=== PATIENT | male | born 1950 | race Caucasian/White ===

== ENCOUNTER 2019-08-04 10:01 | Outpatient (CLI) | payer MEDICARE, OTHER, SELFPAY | END 2019-08-04 10:02 | disposition home or self-care (01) | LOC: ONCMED 10:01 | PROVIDERS: Family Provider Nurse Practitioner; Visit Provider Internal Medicine Medical Oncology | DX: Z45.2 Encounter for adjustment and management of vascular access device (principal) | CPT/HCPCS: 96523 ==

== ENCOUNTER → 2019-08-11 11:27 | Outpatient (BNVA) | payer MEDICARE, OTHER, SELFPAY | PROVIDERS: Family Provider Nurse Practitioner; Visit Provider Nurse Practitioner Family | DX: R05 Cough (principal); J98.8 Other specified respiratory disorders; I51.7 Cardiomegaly; I70.90 Unspecified atherosclerosis | CPT/HCPCS: 71046; 85025 ==

== ENCOUNTER 2019-09-19 08:33 | Outpatient (CLI) | payer MEDICARE, OTHER, SELFPAY | END 2019-09-19 08:34 | disposition home or self-care (01) | LOC: ONCMED 08:36 | PROVIDERS: Family Provider Nurse Practitioner; Visit Provider Internal Medicine Medical Oncology | DX: Z45.2 Encounter for adjustment and management of vascular access device (principal) | CPT/HCPCS: 96523 ==

== ENCOUNTER → 2022-02-26 23:23 | Outpatient (BNVA) | payer MEDICARE, OTHER, SELFPAY | PROVIDERS: Family Provider Nurse Practitioner; Visit Provider Nurse Practitioner | DX: L98.9 Disorder of the skin and subcutaneous tissue, unspecified (principal) | CPT/HCPCS: 88304 ==

== ENCOUNTER → 2022-03-16 12:49 | Outpatient (BNVA) | payer MEDICARE, OTHER, SELFPAY | PROVIDERS: Family Provider Nurse Practitioner; PCP Nurse Practitioner; Visit Provider Otolaryngology | DX: D04.22 Carcinoma in situ of skin of left ear and external auricular canal (principal) | CPT/HCPCS: 99203 ==

== ENCOUNTER 2022-04-02 07:34 | Day surgery (SDC) | payer MEDICARE, OTHER, SELFPAY ==
[2022-04-01 15:43] VITALS: BMI 31.6
[2022-04-02] VITALS (8 sets, daily range): BP systolic 139–159; BP diastolic 65–86; PULSE 63–73; RESP 15–19; TEMP 36.2–37.1; O2SAT 95–100
--- NOTE | 2022-04-02 08:01 | W.PM.OPSUD ---
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
--- NOTE | 2022-04-02 08:08 | ANES.PREANE2 ---
Pre-Anesthetic Assessment Height/Weight: Height 1.83 m Weight 105.687 kg Temp Pulse Resp BP Pulse Ox O2 Del Method 97.7 F 63 18 155/82 96 04/02/22 07:58 04/02/22 07:58 04/02/22 07:58 04/02/22 07:58 04/02/22 07:58 04/02/22 07:58 Preop Diagnosis: Carcinoma in situ left posterior ear Operation Date: 04/02/22 09:05 Proposed Procedures p excision of the posterior aspect of left ear - under local anesthesia only 76299,D04.22(Left) - Thuan Loza MD Familial anesthetic complications: None Was Beta Rachel taken within 24 hours: N/A Was Clonidine taken within 24 hours: N/A Last intake: Intake Last Liquid Date 04/01/22 Last Liquid Time 22:00 Last Solid Date 04/01/22 Last Solid Time 22:00 Social No alcohol and No tobacco Exam alert, oriented x 3, clear to auscultation bilaterally and regular rate & rhythm Airway Mallampati: Class II Dentition: false CV/HEM Hypertension Metabolic Hyperlipidemia Anesthetic Plan ASA status: 2 Anesthesia: General Risk of > 500 ml blood loss (7ml/kg in children): No Medications/Allergies Home Medications Medication Instructions Recorded Confirmed Last Taken Type gabapentin 300 mg capsule 300 mg PO BID 08/04/19 04/02/22 04/02/22 06:00 History losartan 50 mg tablet 50 mg PO DAILY 08/04/19 04/02/22 1 Day Ago History ~04/01/22 lovastatin 40 mg tablet 40 mg PO DAILY 08/04/19 04/02/22 1 Day Ago History ~04/01/22 mirtazapine 15 mg tablet 15 mg PO DAILY 08/04/19 04/02/22 1 Day Ago History ~04/01/22 amlodipine 5 mg tablet 5 mg PO DAILY 02/26/22 04/02/22 04/02/22 06:00 History prenat.vits,peri,mti-ofwk-rwhsi 1 tab PO DAILY 02/26/22 04/02/22 04/02/22 06:00 History prochlorperazine maleate 10 mg 10 mg PO .prn PRN Nausea 02/26/22 04/01/22 Unknown History tablet Allergies Allergy/AdvReac Type Severity Reaction Status Date / Time No Known Allergies Allergy Verified 04/02/22 07:52 [facility] Anesthesia Medical History Anxiety Cardiomegaly Dyslipidemia Hypertension Lymphoma Surgical History History of stem cell transplant Port-A-Cath in place Family History Other CAD (coronary artery disease) Cancer Hypertension Denies family history of Diabetes Stroke Social History Smoking and tobacco status: never smoked Second hand smoke exposure: No Smoking risk assessment/counseling performed?: No Alcohol intake: never Desire information about alcohol rehabilitation?: No Counseling given: No Desire information about substance/drug rehabilitation?: No Counseling given: No Adopted: No Caregiver/support person: No Lives independently: Yes Household members: none Housing: House Marital status: Number of children: 2 service: No Current occupational status: employed Current occupation: [employer] Pets and animals: Yes History of recent travel: No Current gender identity: Male Data Anesthesia Cardiac Studies: No Data to Display
[2022-04-02] MEDS: sodium chloride 0.9% 1,000 ML 30 ML IV (08:15)
[2022-04-02] MEDS: ceFAZolin 2,000 MG in sodium chloride 0.9% (plus) 50 ML 100 MG IV (08:53)
[2022-04-02] MEDS: neomycin-poly-bacitracin oint 28 gm 1 APPLIC TOPICAL (09:45)
--- NOTE | 2022-04-02 09:48 | W.PM.OPSUD ---
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
--- NOTE | 2022-04-02 09:49 | P.OP_ITS ---
Operative Report Date of procedure: April 02, 2022 Pre-op diagnosis: Preop Diagnosis Carcinoma in situ left posterior ear Post-op diagnosis: Squamous cell carcinoma posterior left ear Post-op findings: Previous shave biopsy that revealed carcinoma in situ excised completely and showed microscopically squamous cell carcinoma. Margins clear. Procedure done: Excision of left posterior auricular skin lesion with closure Implants: No implants Specimens removed/disposition: Same Pathology: Left posterior auricular fusiform skin excision specimen marked superiorly with suture. Frozen section clear margins and squamous cell carcinoma present. Surgeon: Thuan oLza MD Anesthesia: General and Local Estimated blood loss: 10 mL Complications: No complications encountered Findings: Left posterior auricular lesion previously biopsied showed carcinoma in situ. Margins were positive. Therefore patient was seen in the office and definite abnormal tissue appearance was still present. Therefore the patient is being brought to the operating room to undergo excision to incorporate the lesion and obtain adequate margins and to rule out squamous cell carcinoma. The procedure its risks and complications have been explained in detail to the patient and his in the office. Informed consent was granted and witnessed. They understand the risks to include bleeding infection numbness scarring swelling bruising cosmetic change recurrence need for additional treatment and anesthetic risks. With these things understood the procedure proceeded. 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 Pathology returned as carcinoma in situ. Due to its location on the posterior aspect of the ear the concrete mixing plant laborer felt that it would be best handled by ENT for complete resection and closure. Patient is being brought to the operating room for this procedure. Initially it was felt that it would be possible to do this under strict local. However based on the age of the patient and the length of time it would take to get frozen section and margins I did not feel that the patient would be able to hold in that position for that length of time. Therefore it was elected to switch over to General with LMA and local. Procedure: Description of procedure: Patient was placed on the operating table in the supine position. Adequate general LMA anesthesia was obtained. Patient received Ancef IV for prophylaxis. The patient was repositioned into a semirecumbent position and tilted slightly to the right to expose the left posterior ear. In that position the area was prepped by first cleansing with alcohol. Sign the site was noted. 5.1 mL of 2% Xylocaine with 1-100,000 epinephrine was used to infiltrate into a field block. The patient was then prepped and draped in usual fashion. ChloraPrep used. Timeout was accomplished identifying the patient date of plan procedure allergies fire risk and medications given. With all in agreement the procedure continued. A marking pen was used to outline a fusiform excision pattern. This measured over 2 cm superior to inferior and approximately 1.3 cm anterior to posterior. The lesion in question measured about 4 mm. The incision was created with a 15 blade carrying it down to the perichondrium. In this layer the lesion was excised. The superior aspect was marked with a suture. This was forwarded to pathology for frozen section diagnosis and margins. The bleeding was controlled with bipolar cautery. Pressure was applied for several minutes. With the likelihood that I got good margins around the lesion I closed the surgical defect with a running 4-0 Vicryl suture. Pressure was then applied for approximately 15 minutes while further frozen section evaluation was accomplished. The final result on the frozen section was that there was an area of squamous cell carcinoma. Margins were clear throughout. With that accomplished the area was cleansed. Neosporin ointment was applied over the incision. A large Band-Aid was used to cover over that. Drapes were removed and the patient was returned to anesthesia for wake-up and transport to recovery. He tolerated the procedure well had an estimated blood loss of 10 mL and arrived in recovery in stable condition.
--- NOTE | 2022-04-02 10:00 | SUR.PHASEI ---
0954 PT TO PACU 4 PT AWAKES, ORAL AIRWAY OUT , PT WITH GOOD RESP NOTED IV PATENT TO LT CHEST PORT AT KVO RATE PER GRAVITY, 500ML NS UP. ID BRACELET TO RT WRIST, PT ID'D WITH 2 IDENTIFIERS, MONITOR SR WITH NO ECTOPY NOTED. LT EAR WITH BANDAID DRESSING D/I PT AWAKES TO VOICE EASILY AND VERBALLY DENIES PAIN AND NAUSEA, PT QUICKLY BACK TO SLEEP WITH NO DISTRESS, GOOD RESP EFFORT NOTED.
--- NOTE | 2022-04-02 13:35 | ANE.PACU2 ---
Inpatient post-anesthesia follow up: Airway intact: Yes Vital signs: Temperature 97.8 F Pulse Rate 67 Respiratory Rate 18 Blood Pressure 159/74 Pulse Oximetry 95 Oxygen Delivery Me thod Room Air Oxygen Flow Rate 8 Fraction of Inspir ed Oxygen Hydration adequate: Yes Nausea and vomiting: No Pain level: 1 Mental status: Baseline
== END 2022-04-02 11:09 | disposition home or self-care (01) ==
PROVIDERS: PCP Nurse Practitioner; Visit Provider Otolaryngology
PROC: (CPT 11643; principal; 2022-04-02 08:55)
DX: C44.229 Squamous cell carcinoma of skin of left ear and external auricular canal (principal); I10 Essential (primary) hypertension; E78.5 Hyperlipidemia, unspecified; F41.9 Anxiety disorder, unspecified
CPT/HCPCS: 11643; 12051; 88304; 88331; J0690; J2704; J3010; J7030

== ENCOUNTER → 2022-04-10 08:35 | Outpatient (BNVA) | payer MEDICARE, OTHER, SELFPAY | PROVIDERS: PCP Nurse Practitioner; Visit Provider Otolaryngology | DX: C44.229 Squamous cell carcinoma of skin of left ear and external auricular canal (principal) | CPT/HCPCS: 99024 ==

== ENCOUNTER → 2022-04-13 08:29 | Outpatient (BNVA) | payer MEDICARE, OTHER, SELFPAY | PROVIDERS: PCP Nurse Practitioner; Visit Provider Otolaryngology | DX: Z48.817 Encounter for surgical aftercare following surgery on the skin and subcutaneous tissue (principal); C44.229 Squamous cell carcinoma of skin of left ear and external auricular canal | CPT/HCPCS: 99024 ==

== ENCOUNTER → 2022-05-15 11:33 | Outpatient (BNVA) | payer MEDICARE, OTHER, SELFPAY | PROVIDERS: PCP Nurse Practitioner; Visit Provider Otolaryngology | DX: Z48.817 Encounter for surgical aftercare following surgery on the skin and subcutaneous tissue (principal) | CPT/HCPCS: 99024; 99212 ==

== ENCOUNTER → 2022-05-29 14:05 | Outpatient (BNVA) | payer MEDICARE, OTHER, SELFPAY | PROVIDERS: PCP Nurse Practitioner; Visit Provider Nurse Practitioner Family | DX: R05.9 Cough, unspecified (principal); J06.9 Acute upper respiratory infection, unspecified | CPT/HCPCS: 87400; 87426 ==

== ENCOUNTER 2023-10-08 08:22 | Oncology outpatient (recurring) (ONCR) | payer MEDICARE, OTHER, SELFPAY | END 2023-10-29 23:59 | disposition home or self-care (01) | PROVIDERS: PCP Nurse Practitioner; Visit Provider Internal Medicine Medical Oncology | DX: Z45.2 Encounter for adjustment and management of vascular access device (principal); Z53.9 Procedure and treatment not carried out, unspecified reason | CPT/HCPCS: 96523 ==

== ENCOUNTER 2024-05-03 13:09 | Oncology outpatient (recurring) (ONCR) | payer MEDICARE, OTHER, SELFPAY | END 2024-05-30 23:59 | disposition home or self-care (01) | PROVIDERS: PCP Nurse Practitioner; Visit Provider Internal Medicine Medical Oncology | DX: Z45.2 Encounter for adjustment and management of vascular access device (principal) | CPT/HCPCS: 96523 ==

== ENCOUNTER → 2024-07-25 15:52 | Outpatient (BNVA) | payer MEDICARE, OTHER, SELFPAY | PROVIDERS: PCP Nurse Practitioner; Visit Provider Nurse Practitioner | DX: R05.9 Cough, unspecified (principal); R50.9 Fever, unspecified | CPT/HCPCS: 87400; 87426 ==

== ENCOUNTER → 2024-08-31 14:56 | Outpatient (BNVA) | payer MEDICARE, OTHER, SELFPAY | PROVIDERS: PCP Nurse Practitioner; Referring Provider Nurse Practitioner; Visit Provider Nurse Practitioner Family | DX: L81.4 Other melanin hyperpigmentation (principal); L82.1 Other seborrheic keratosis; L57.8 Other skin changes due to chronic exposure to nonionizing radiation; X32.XXXA Exposure to sunlight, initial encounter; L73.8 Other specified follicular disorders; Z08 Encounter for follow-up examination after completed treatment for malignant neoplasm; Z85.828 Personal history of other malignant neoplasm of skin; D48.5 Neoplasm of uncertain behavior of skin; L57.0 Actinic keratosis | CPT/HCPCS: 11102; 17000; 99203 ==

== ENCOUNTER → 2024-10-09 09:09 | Outpatient (BNVA) | payer MEDICARE, OTHER, SELFPAY | PROVIDERS: PCP Nurse Practitioner; Visit Provider Dermatology | DX: L82.1 Other seborrheic keratosis (principal); L73.8 Other specified follicular disorders; C44.311 Basal cell carcinoma of skin of nose | CPT/HCPCS: 17311; 99213 ==

== ENCOUNTER → 2024-10-13 08:31 | Outpatient (BNVA) | payer MEDICARE, OTHER, SELFPAY | PROVIDERS: PCP Nurse Practitioner; Visit Provider Dermatology | DX: C44.311 Basal cell carcinoma of skin of nose (principal) | CPT/HCPCS: 15260 ==

== ENCOUNTER 2024-10-19 10:56 | Oncology outpatient (recurring) (ONCR) | payer MEDICARE, OTHER, SELFPAY | END 2024-10-28 23:59 | disposition home or self-care (01) | LOC: ONCMED 10:57 | PROVIDERS: PCP Nurse Practitioner; Visit Provider Internal Medicine Medical Oncology | DX: Z45.2 Encounter for adjustment and management of vascular access device (principal); Z95.828 Presence of other vascular implants and grafts | CPT/HCPCS: 96523 ==

== ENCOUNTER → 2024-10-24 12:25 | Outpatient (BNVA) | payer MEDICARE, OTHER, SELFPAY | PROVIDERS: PCP Nurse Practitioner; Visit Provider Dermatology | DX: C44.311 Basal cell carcinoma of skin of nose (principal) | CPT/HCPCS: 99213 ==

== ENCOUNTER → 2024-11-07 13:09 | Outpatient (BNVA) | payer MEDICARE, OTHER, SELFPAY | PROVIDERS: PCP Nurse Practitioner; Visit Provider Dermatology | DX: C44.311 Basal cell carcinoma of skin of nose (principal) | CPT/HCPCS: 99213 ==

== ENCOUNTER 2024-12-09 15:56 | Emergency (ER) | payer MEDICARE, OTHER, SELFPAY ==
--- OUTSIDE RECORDS SUMMARY | 2024-11-23 04:30 | XMS_ITS ---
Author Organization [facility] Address [address] [place] [address] Care Team Providers Care Medical Laboratory Manager Name Role Phone Mick Del Toro APRN Primary Care Provider Unav Edin Donovan Unavailable [phone] Encounters Encounter Location Date Provider Diagnosis [facility] [address] [place] [address], [place] [address] 11/23/2024 Edin Myers Plan Of Treatment Next Appt Details Provider Name:Rossana jim, 01/05/2025 10:45:00 AM, [address] [place] [address], [place], [address], Progress Notes * Marcus GAYTANDOB: [birth year] (74 yo M)Acc No.[id number]:11/23/2024 Patient: Marcus Bennett Provider: Robb Myers MD :1950 A ge:74 Y S ex:Male Date:11/23/2024 Address:[address] [place], [place] [id number] Pcp:Mick Del Toro APRN Check In:09:16 AM CSTCheck O ut: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
--- OUTSIDE RECORDS SUMMARY | 2024-12-08 07:00 | XMS_ITS ---
Author Organization [facility] Address [address] [place] [address] Care Team Providers Care Networker Name Role Phone Mick Del Toro APRN Primary Care Provider Edin Hodge [phone] REASON FOR VISIT RIGHT RADIAL APPROACH LHC +/- STENT SCHEDULED FOR 12/08/24 AT 12:00PM CHECK IN AT 9:00AM Medications Medication SIG (Take, Route, Frequency, Duration) Notes Start Date End Date Status Plavix 75 MG Tablet 1 tablet Orally Once a day; Duration: 90 days 11/23/2024 Active Aspirin 81 81 MG Tablet Chewable 1 tablet Orally Once a day; Duration: 30 day(s) 11/23/2024 12/23/2024 Active Telmisartan 40 MG Tablet 1 tablet Orally Once a day Active Spironolactone 25 MG Tablet 1 tablet Orally Active Nitroglycerin 0.4 MG Tablet Sublingual as directed Sublingual 1 SL Q 5 MIN, XS 3 PRN CP, GO TO ER IF TAKES 3RD PILL. NO IMPOTENCY MED WITHIN 48 HRS.; Duration: 30 days 09/13/2024 01/11/2025 Active amLODIPine Besylate 5 MG Tablet 1 tablet Orally Once a day Active Mirtazapine 7.5 MG Tablet 2 tablets at b edtime Orally Once a day Active Lovastatin 40 MG Tablet 1 tablet with th e evening meal Orally Once a day Active Gabapentin 300 MG Capsule 1 capsule Orally BID Active DULoxetine HCl 30 MG Capsule Delayed Release Particles 1 capsule Orally Once a day Active Encounters Encounter Location Date Provider Diagnosis [facility] [address] [place] [address] 12/08/2024 Edin Myers Plan Of Treatment Next Appt Details Provider Name:Rossana jim, 01/05/2025 10:45:00 AM, [address] [facility], [place], [address], Progress Notes * Marcus GAYTANDOB: [birth year] (74 yo M)Acc No.[id number]:12/08/2024 Patient: Marcus Bennett Provider: oRbb Myers MD :1950 A ge:74 Y S ex:Male Date:12/08/2024 Address:[address] [place], [place] [id number] Pcp:Mick Del Toro APRN 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:35 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 NO IMPOTENCY MED WITHIN 48 HRS. , stop date 01/11/2025Spironolactone 25 MG Tablet 1 tablet Orally Telmisartan 40 MG Tablet 1 tablet Orally Once a day Aspirin 81 81 MG Tablet Chewable 1 tablet Orally Once a day , stop date 12/23/2024Plavix 75 MG Tablet 1 tablet Orally Once a day Taking amLODIPine Besylate 5 MG Tablet 1 tablet Orally Once a day Taking DULoxetine HCl 30 MG Capsule Delayed Release Particles 1 capsule Orally Once a day Taking Gabapentin 300 MG Capsule 1 capsule Orally BID Taking Lovastatin 40 MG Tablet 1 tablet with the evening meal Orally Once a day Taking Mirtazapine 7.5 MG Tablet 2 tablets at bedtime Orally Once a day Taking Nitroglycerin 0.4 MG Tablet Sublingual as directed Sublingual 1 SL Q 5 MIN, XS 3 PRN CP, GO TO ER IF TAKES 3RD PILL. NO IMPOTENCY MED WITHIN 48 HRS. , stop date 01/11/2025Taking Spironolactone 25 MG Tablet 1 tablet Orally Taking Telmisartan 40 MG Tablet 1 tablet Orally Once a day Taking Aspirin 81 81 MG Tablet Chewable 1 tablet Orally Once a day , stop date 12/23/2024Taking Plavix 75 MG Tablet 1 tablet Orally Once a day Billing Information: * Procedure Codes: * Electronic signature of Ana Luisa Myers MD on 12/09/2024 at 04:07 PM CDT Sign off status: Pending * Provider: Robb Myers MD Date: 12/08/2024 Generated for Janie mcgee/Maxx/Clement on: 12/09/2024 04:07 PM CDT
[2024-12-09] VITALS (8 sets, daily range): BP systolic 125–141; BP diastolic 68–83; PULSE 62–71; RESP 16; TEMP 36.7; O2SAT 92–96; BMI 33.9
--- NOTE | 2024-12-09 15:59 | ECG_ITS ---
[facility] Test Date: 2024-12-09 Pat Name: Marcus Mejia Department: Room: Gender: Male Cardiology Associate: : 1950 Requested By: Scott Hassan Order Number: [id number] Samira MD: Gerson Paul M.D. Measurements Intervals [place] Rate: 70 P: 65 AK: 195 QRS: 56 QRSD: 155 T: 94 QT: 425 QTc: 459 Interpretive Statements SINUS RHYTHM WITH SINUS ARRHYTHMIA right bundle branch block pattern Compared to ECG 12/17/2018 14:15:59 Intraventricular conduction delay now present Right bundle-branch block no longer present T-wave abnormality no longer present Possible ischemia no longer present Electronically Signed On 12-12-2024 10:10:55 CDT by Gerson Paul M.D. [email or web address] [id number]
--- NOTE | 2024-12-09 15:59 | XRR_ITS ---
PROCEDURE INFORMATION: Exam: XR Chest Exam date and time: 12/09/2024 4:20 PM Age: 74 years old Clinical indication: Pain; Chest pressure; Prior surgery; Surgery date: 6+ months; Surgery type: Port-a-cath; PT was in procedure for stent placement yesterday but there was a complication with the PT blood pressure, and the procedure was stopped and was to be rescheduled. ; Additional info: Chest pain TECHNIQUE: Imaging protocol: Radiologic exam of the chest. Views: 1 view. COMPARISON: CR XR chest 2V* [id number] 08/11/2019 11:27 AM FINDINGS: Tubes, catheters and devices: Central venous access catheter or Port-A-Cath on the left, with tip of the catheter appearing in good position at the expected level of the superior vena cava near the right atrium. Lungs: See Pleural spaces finding. Pleural spaces: Biapical pleural thickening, unchanged with previous exam. No infiltrate/edema or consolidation. No pleural effusion. No pneumothorax. Heart/Mediastinum: Mild cardiomegaly. Vasculature: Mild arteriosclerosis thoracic aorta. Bones/joints: Unremarkable. Other findings: No significant change with prior exam. XR/XR chest 1V portable [id number] IMPRESSION: Stable appearance of the chest with prior exam. No acute findings. Port-A-Cath on the left, mild cardiomegaly, and bilateral apical pleural thickening are unchanged with prior exam.
--- NOTE | 2024-12-09 16:01 | W.ED.CHESTPA ---
Documented by User: Scott Rodriguez DO 12/11/24 08:40 HPI - Chest Pain General: Chief Complaint: Chest Pain Stated Complaint: chest pain Time Seen by Provider: 12/09/24 15:59 History of Present Illness: 74-year-old male presents to the emergency room with complaints of chest pain began while he was resting. Patient has known coronary disease he tells me he was at the [employer] yesterday in [place] there were areas of concern. Told they wanted to place stents for his blood pressure decrease stopped the procedure he was eventually discharged home today he had chest pain while at home at rest it was relieved by nitroglycerin he called EMS and was brought to the Associated symptoms: Deny abdominal pain, dyspnea or fever(s) Related Data Home Medications ?Medication ?Instructions ?Recorded ?Confirmed telmisartan 40 mg tablet 40 mg PO BEDTIME 03/03/23 12/09/24 clopidogrel 75 mg tablet 75 mg PO QAM 11/27/24 12/09/24 mirtazapine 7.5 mg tablet 7.5 mg PO BEDTIME 11/27/24 12/09/24 amlodipine 5 mg tablet 5 mg PO QAM 12/09/24 12/09/24 aspirin 81 mg tablet,delayed 81 mg PO BEDTIME 12/09/24 12/09/24 release famotidine 40 mg tablet (Pepcid) 40 mg PO QAM PRN stomach upset 12/09/24 12/09/24 lovastatin 40 mg tablet 40 mg PO BEDTIME 12/09/24 12/09/24 spironolactone 25 mg tablet 25 mg PO QAM 12/09/24 12/09/24 Previous Rx's ?Medication ?Instructions ?Recorded nebulizers #1 ea 07/25/24 gabapentin 300 mg capsule 300 mg PO BID #60 caps 11/10/24 duloxetine 30 mg capsule,delayed 30 mg PO BID #60 caps 11/27/24 release (Cymbalta) Allergies Allergy/AdvReac Type Severity Reaction Status Date / Time No Known Allergies Allergy Verified 11/27/24 14:26 Review of Systems Const: Denies: fever(s) or chills Card: Denies: chest pain Resp: Denies: dyspnea GI: Denies: abdominal pain : Denies: dysuria, urinary frequency or urinary urgency Musc: Denies: neck pain or back pain Skin/Breast: Denies: rash PFSH ED PFSH: Medical History Neuropathic pain Lymphoma Anxiety Dyslipidemia Hypertension Cardiomegaly Surgical History Port-A-Cath in place History of stem cell transplant Family History Other CAD (coronary artery disease) Cancer Hypertension Denies family history of Diabetes Stroke Social History Smoking and tobacco/nicotine status: former use of tobacco/nicotine Second hand smoke exposure: No Alcohol intake: never Substance/Drug Use: never Adopted: No Caregiver/support person: No Lives independently: Yes Household members: none Housing: House Marital status: Number of children: 2 service: No Current occupational status: employed Current occupation: [employer] Pets and animals: Yes Do you think of yourself as: Straight/Heterosexual Current gender identity: Male Physical Exam Const: COMMON NORMALS: no acute distress GENERAL APPEARANCE: cooperative and comfortable ORIENTATION/CONSCIOUSNESS: Yes awake, Yes oriented to person, Yes oriented to place and Yes oriented to time HENMT: COMMON NORMALS: normocephalic, atraumatic and hearing grossly normal bilaterally HEAD & SCALP: normocephalic and atraumatic Resp: COMMON NORMALS: normal respiratory effort, No retractions, No use of accessory muscles and clear to auscultation bilaterally AUSCULTATION: clear to auscultation bilaterally Cardio: COMMON NORMALS: regular rate, regular rhythm and No murmurs present (Cardio) RATE: regular rate RHYTHM: regular rhythm GI: COMMON NORMALS: Soft to palpation and No hepatosplenomegaly present AUSCULTATION: Yes normoactive bowel sounds PALPATION: Yes Soft to palpation, No Tenderness to palpation present (GI), No Guarding due to palpation present (GI) and Yes No hepatosplenomegaly present Extremity: COMMON NORMALS: normal to inspection, capillary refill normal, no clubbing, cyanosis or edema, no calf tenderness and no pedal edema Neuro: SENSORIUM/ORIENTATION: Yes oriented to person, Yes oriented to place and Yes oriented to time Skin: COMMON NORMALS: no rashes or lesions noted GENERAL SKIN EXAM: no rashes or lesions noted Course Vital Signs: Vital signs: Vital Signs Temperature 98.1 F 12/09/24 15:58 Pulse Rate 70 12/09/24 22:45 Respiratory Rate 16 12/09/24 22:45 Blood Pressure 133/74 12/09/24 22:45 Pulse Oximetry 92 12/09/24 22:45 Oxygen Delivery Me thod Room Air 12/09/24 22:25 MDM - Chest Pain Medical Decision Making Still waiting on records from [place] regarding the cardiac catheterization the patient mentioned he had it yesterday. This obviously is fairly concerning his description was that they had decided he did not need intervention but were not able to do it at the time because he got hypotensive. Discussed with Dr. Medina. Signout read 74-year-old male patient with a history of coronary disease checked out to me at shift change by the previous physician. This bang had a catheterization yesterday at an outside facility ([facility] in [facility]). That showed severe triple-vessel disease. The suggestion was to manage him medically, and refer him to a facility with chest surgery backup, as there is a high likelihood he would need a bypass. The patient has had prior treatments at oncology at [facility] in [place]. That was the request for facility with CTS backup, as we have no CTS team at this facility. I spoke with her psychologist engineering on-call. He is graciously agreed to accept in transfer. [facility] but there will likely be beds available by morning discharges on the cardiology floor. The patient is agreement to stay here tonight, in hopes for a bed in the morning. He will stay on the monitor. He knows to let us know if there is any pain that returns. Currently he is pain-free. Vital signs are as follows pulse 68, saturation is 96% on room air, blood pressure 132/83, respirations 16. Lab Data 12/09/24 16:14 12/09/24 16:14 Radiology Impressions Chest X-Ray 12/09/24 15:59 IMPRESSION: Stable appearance of the chest with prior exam. No acute findings. Port-A-Cath on the left, mild cardiomegaly, and bilateral apical pleural thickening are unchanged with prior exam. Laboratory Results WBC 7.01 10^3/uL (3.29-11.43) 12/09/24 16:14 RBC 3.91 10^6/uL (3.85-5.65) 12/09/24 16:14 Hgb 11.30 g/dL (11.27-16.99) 12/09/24 16:14 Hct 33.3 % (37-53) L 12/09/24 16:14 MCV 85.2 fl (82-101) 12/09/24 16:14 MCH 28.9 pg (27-33) 12/09/24 16:14 MCHC 33.9 g/dL (30-55) 12/09/24 16:14 RDW 12.2 % (12.1-15.1) 12/09/24 16:14 Plt Count 254 10^3/cmm (157-399) 12/09/24 16:14 MPV 8.9 fL (7.4-10.4) 12/09/24 16:14 Neut % (Auto) 68.6 % 12/09/24 16:14 Lymph % (Auto) 20.5 % 12/09/24 16:14 Hamlin % (Auto) 7.0 % 12/09/24 16:14 Eos % (Auto) 2.1 % 12/09/24 16:14 Baso % (Auto) 0.9 % 12/09/24 16:14 Neut # (Auto) 4.81 10^3/uL (1.8-7.7) 12/09/24 16:14 Lymph # (Auto) 1.4 10^3/uL (0.8-4.8) 12/09/24 16:14 Hamlin # (Auto) 0.5 10^3/uL (0.2-0.9) 12/09/24 16:14 Eos # (Auto) 0.2 10^3/uL (0.0-0.8) 12/09/24 16:14 Baso # (Auto) 0.1 10^3/uL (0.0-0.1) 12/09/24 16:14 Nucleated RBC % (auto) 0 % 12/09/24 16:14 Nucleated RBCs # 0.0 /100WBC 12/09/24 16:14 Sodium 132 mmol/L (136-145) L 12/09/24 16:14 Potassium 4.0 mmol/L (3.5-5.1) 12/09/24 16:14 Chloride 93 mmol/L (98-107) L 12/09/24 16:14 Carbon Dioxide 24 mmol/L (22-29) 12/09/24 16:14 Anion Gap 19.0 (5-19) 12/09/24 16:14 BUN 22 mg/dL (8-23) 12/09/24 16:14 Creatinine 1.3 mg/dL (0.7-1.2) H 12/09/24 16:14 GFR Calculation Not Reportable 12/09/24 16:14 Glucose 107 mg/dL (65-115) 12/09/24 16:14 Calculated Osmolality 278 mOsm/kg (285-295) L 12/09/24 16:14 Calcium 9.2 mg/dL (8.5-10.5) 12/09/24 16:14 Total Bilirubin 0.8 mg/dL (0.15-1.2) 12/09/24 16:14 AST 15 U/L (0-40) 12/09/24 16:14 ALT 14 U/L (0-41) 12/09/24 16:14 Alkaline Phosphatase 120 U/L (40-130) 12/09/24 16:14 Troponin T Baseline 14 ng/L (0-15) 12/09/24 16:14 Troponin T 120 Minute 14.49 ng/L (0-15) 12/09/24 18:43 Delta Troponin T 0.49 ABS# (0-10) 12/09/24 18:43 Troponin T Hi Sens 6Hr 15.95 ng/L (0-15) H 12/09/24 22:18 Troponin T Hi Sens 6Hr Delta 1.95 ng/L (0-12) 12/09/24 22:18 Total Protein 6.9 g/dL (6.6-8.7) 12/09/24 16:14 Albumin 4.0 g/dL (3.5-5.2) 12/09/24 16:14 Globulin 2.9 g/dL (1.3-4.6) 12/09/24 16:14 Discharge Plan Discharge Patient Disposition: Xfer Short-Term Hosp Clinical Impression: Chest pain Coronary artery disease Qualifiers: Coronary Disease-Associated Artery/Lesion type: [place] artery [place] vs. 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 [employer] Documented by User: Matt Medina DO 12/10/24 00:42 HPI - Chest Pain General: Chief Complaint: Chest Pain Stated Complaint: chest pain Time Seen by Provider: 12/09/24 15:59 Related Data Home Medications ?Medication ?Instructions ?Recorded ?Confirmed telmisartan 40 mg tablet 40 mg PO BEDTIME 03/03/23 12/09/24 clopidogrel 75 mg tablet 75 mg PO QAM 11/27/24 12/09/24 mirtazapine 7.5 mg tablet 7.5 mg PO BEDTIME 11/27/24 12/09/24 amlodipine 5 mg tablet 5 mg PO QAM 12/09/24 12/09/24 aspirin 81 mg tablet,delayed 81 mg PO BEDTIME 12/09/24 12/09/24 release famotidine 40 mg tablet (Pepcid) 40 mg PO QAM PRN stomach upset 12/09/24 12/09/24 lovastatin 40 mg tablet 40 mg PO BEDTIME 12/09/24 12/09/24 spironolactone 25 mg tablet 25 mg PO QAM 12/09/24 12/09/24 Previous Rx's ?Medication ?Instructions ?Recorded nebulizers #1 ea 07/25/24 gabapentin 300 mg capsule 300 mg PO BID #60 caps 11/10/24 duloxetine 30 mg capsule,delayed 30 mg PO BID #60 caps 11/27/24 release (Cymbalta) Allergies Allergy/AdvReac Type Severity Reaction Status Date / Time No Known Allergies Allergy Verified 11/27/24 14:26 PFSH ED PFSH: Medical History Neuropathic pain Lymphoma Anxiety Dyslipidemia Hypertension Cardiomegaly Surgical History Port-A-Cath in place History of stem cell transplant Family History Other CAD (coronary artery disease) Cancer Hypertension Denies family history of Diabetes Stroke Social History Smoking and tobacco/nicotine status: former use of tobacco/nicotine Second hand smoke exposure: No Alcohol intake: never Substance/Drug Use: never Adopted: No Caregiver/support person: No Lives independently: Yes Household members: none Housing: House Marital status: Number of children: 2 service: No Current occupational status: employed Current occupation: [employer] Pets and animals: Yes Do you think of yourself as: Straight/Heterosexual Current gender identity: Male Course Vital Signs: Vital signs: Vital Signs Temperature 98.1 F 12/09/24 15:58 Pulse Rate 70 12/09/24 22:45 Respiratory Rate 16 12/09/24 22:45 Blood Pressure 133/74 12/09/24 22:45 Pulse Oximetry 92 12/09/24 22:45 Oxygen Delivery Me thod Room Air 12/09/24 22:25 MDM - Chest Pain Medical Decision Making 74-year-old male patient with a history of coronary disease checked out to me at shift change by the previous physician. This bang had a catheterization yesterday at an outside facility ([facility] in [facility]). That showed severe triple-vessel disease. The suggestion was to manage him medically, and refer him to a facility with chest surgery backup, as there is a high likelihood he would need a bypass. The patient has had prior treatments at oncology at [facility] in [place]. That was the request for facility with CTS backup, as we have no CTS team at this facility. I spoke with her psychologist engineering on-call. He is graciously agreed to accept in transfer. There are no beds available tonight, but there will likely be beds available by morning discharges on the cardiology floor. The patient is agreement to stay here tonight, in hopes for a bed in the morning. He will stay on the monitor. He knows to let us know if there is any pain that returns. Currently he is pain-free. Vital signs are as follows pulse 68, saturation is 96% on room air, blood pressure 132/83, respirations 16. Lab Data 12/09/24 16:14 12/09/24 16:14 Radiology Impressions Chest X-Ray 12/09/24 15:59 IMPRESSION: Stable appearance of the chest with prior exam. No acute findings. Port-A-Cath on the left, mild cardiomegaly, and bilateral apical pleural thickening are unchanged with prior exam. Laboratory Results WBC 7.01 10^3/uL (3.29-11.43) 12/09/24 16:14 RBC 3.91 10^6/uL (3.85-5.65) 12/09/24 16:14 Hgb 11.30 g/dL (11.27-16.99) 12/09/24 16:14 Hct 33.3 % (37-53) L 12/09/24 16:14 MCV 85.2 fl (82-101) 12/09/24 16:14 MCH 28.9 pg (27-33) 12/09/24 16:14 MCHC 33.9 g/dL (30-55) 12/09/24 16:14 RDW 12.2 % (12.1-15.1) 12/09/24 16:14 Plt Count 254 10^3/cmm (157-399) 12/09/24 16:14 MPV 8.9 fL (7.4-10.4) 12/09/24 16:14 Neut % (Auto) 68.6 % 12/09/24 16:14 Lymph % (Auto) 20.5 % 12/09/24 16:14 Hamlin % (Auto) 7.0 % 12/09/24 16:14 Eos % (Auto) 2.1 % 12/09/24 16:14 Baso % (Auto) 0.9 % 12/09/24 16:14 Neut # (Auto) 4.81 10^3/uL (1.8-7.7) 12/09/24 16:14 Lymph # (Auto) 1.4 10^3/uL (0.8-4.8) 12/09/24 16:14 Hamlin # (Auto) 0.5 10^3/uL (0.2-0.9) 12/09/24 16:14 Eos # (Auto) 0.2 10^3/uL (0.0-0.8) 12/09/24 16:14 Baso # (Auto) 0.1 10^3/uL (0.0-0.1) 12/09/24 16:14 Nucleated RBC % (auto) 0 % 12/09/24 16:14 Nucleated RBCs # 0.0 /100WBC 12/09/24 16:14 Sodium 132 mmol/L (136-145) L 12/09/24 16:14 Potassium 4.0 mmol/L (3.5-5.1) 12/09/24 16:14 Chloride 93 mmol/L (98-107) L 12/09/24 16:14 Carbon Dioxide 24 mmol/L (22-29) 12/09/24 16:14 Anion Gap 19.0 (5-19) 12/09/24 16:14 BUN 22 mg/dL (8-23) 12/09/24 16:14 Creatinine 1.3 mg/dL (0.7-1.2) H 12/09/24 16:14 GFR Calculation Not Reportable 12/09/24 16:14 Glucose 107 mg/dL (65-115) 12/09/24 16:14 Calculated Osmolality 278 mOsm/kg (285-295) L 12/09/24 16:14 Calcium 9.2 mg/dL (8.5-10.5) 12/09/24 16:14 Total Bilirubin 0.8 mg/dL (0.15-1.2) 12/09/24 16:14 AST 15 U/L (0-40) 12/09/24 16:14 ALT 14 U/L (0-41) 12/09/24 16:14 Alkaline Phosphatase 120 U/L (40-130) 12/09/24 16:14 Troponin T Baseline 14 ng/L (0-15) 12/09/24 16:14 Troponin T 120 Minute 14.49 ng/L (0-15) 12/09/24 18:43 Delta Troponin T 0.49 ABS# (0-10) 12/09/24 18:43 Troponin T Hi Sens 6Hr 15.95 ng/L (0-15) H 12/09/24 22:18 Troponin T Hi Sens 6Hr Delta 1.95 ng/L (0-12) 12/09/24 22:18 Total Protein 6.9 g/dL (6.6-8.7) 12/09/24 16:14 Albumin 4.0 g/dL (3.5-5.2) 12/09/24 16:14 Globulin 2.9 g/dL (1.3-4.6) 12/09/24 16:14 All radiology interpretation(s) finalized by discharge Discharge Plan Discharge Patient Disposition: Xfer Short-Term Hosp Clinical Impression: Chest pain Coronary artery disease Qualifiers: Coronary Disease-Associated Artery/Lesion type: [place] artery [place] vs. transplanted heart: [place] heart Associated angina: with unstable angina Qualified Code(s): I25.110 - Atherosclerotic heart disease of [place] coronary artery with unstable angina pectoris Condition: Stable Referrals: Mick Del Toro, FISHING ROD MECHANIC-C [Primary Care Provider, [facility]] Print Language: Thai Coding Level of Care Code ED President Sales And Marketing for Sharon Vo
--- OUTSIDE RECORDS SUMMARY | 2024-12-09 16:07 | XMS_ITS | Encounter Summary ---
Author Organization [facility] Address [address] [place] [address] Care Team Providers Care Aeronautics Commission Director Name Role Phone Vikki Marshall NP Primary Care Provider [phone] Encounter Details Date Type Department Care Team (Late st Contact Info) Description 05/05/2007 Outpatient Historical [facility] Cancer and Hematology [address] [place] [address] [address] [place] [phone] Isac Locke MD NO ADDRESS ON FILE Social History Tobacco Use Types Packs/Day Years Used Date Smoking Tobacco: Never Assessed Sex and Gender Information Value Date Recorded Sex Assigned at Not on file Legal Sex Male 4:[address] 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
--- OUTSIDE RECORDS SUMMARY | 2024-12-09 16:07 | XMS_ITS | Encounter Summary ---
Author Organization [facility] Address [address] [place] [address] Care Team Providers Care Sales Associate Key Holder Name Role Phone Vikki Marshall NP Primary Care Provider [phone] Encounter Details Date Type Department Care Team (Late st Contact Info) Description 05/05/2007 Outpatient Historical [facility] Cancer and Hematology [address] [place] [address] [address] [place] [phone] Isac Locke MD NO ADDRESS ON FILE Social History Tobacco Use Types Packs/Day Years Used Date Smoking Tobacco: Never Assessed Sex and Gender Information Value Date Recorded Sex Assigned at Not on file Legal Sex Male 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
--- OUTSIDE RECORDS SUMMARY | 2024-12-09 16:08 | XMS_ITS | Encounter Summary ---
Author Organization [facility] Address [address] [place] [address] Care Team Providers Care Residential Case Manager Name Role Phone Vikki Marshall NP Primary Care Provider [phone] Encounter Details Date Type Department Care Team (Late st Contact Info) Description 05/27/2007 Outpatient Historical [facility] [address] [place] [address] [address] [place] [phone] Isac Locke MD NO ADDRESS ON FILE Social History Tobacco Use Types Packs/Day Years Used Date Smoking Tobacco: Never Assessed Sex and Gender Information Value Date Recorded Sex Assigned at Not on file Legal Sex Male 4:26 AM HEALTH ADVOCATE Gender Identity Not on file Sexual Orientation Not on file documented as of this encounter Plan of Treatment Not on file documented as of this encounter Visit Diagnoses Not on filedocumented in this encounter Care Teams Residential Case Manager Relationship Specialty Start Date End Date Vikki Marshall NP [address] [place] [id number] PCP - General 08/15/08 documented as of this encounter
--- OUTSIDE RECORDS SUMMARY | 2024-12-09 16:08 | XMS_ITS | Encounter Summary ---
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) Social History Tobacco Use Types Packs/Day Years Used Date Smoking Tobacco: Never Assessed Sex and Gender Information Value Date Recorded Sex Assigned at Not on file Legal Sex Male 4:26 AM GENERATION ENGINEER Gender Identity Not on file Sexual Orientation Not on file documented as of this encounter Plan of Treatment Not on file documented as of this encounter Procedures Procedure Name Priority Date/Time Associated Diagnosis Comments POC GLUCOSE Routine 06/24/2007 8:19 AM GENERATION ENGINEER documented in this encounter Results * POC GLUCOSE (06/24/2007 8:19 AM GENERATION ENGINEER) GLUCOSE POC 98 60 - 100 mg/dL INTERFACE SYSTEM 06/24/2007 8:19 AM GENERATION ENGINEER us Isac Locke MD POINT OF CARE TESTING Edited INTERFACE SYSTEM Refer to clinic/hospital department documented in this encounter Visit Diagnoses Diagnosis Other malignant lymphomas of intra-abdominal lymph nodes documented in this encounter Care Teams Finance Specialist Relationship Specialty Start Date End Date Vikki Marshall NP [address] [place] [address] [place] [address] PCP - General 08/15/08 documented as of this encounter
--- OUTSIDE RECORDS SUMMARY | 2024-12-09 16:08 | XMS_ITS | Encounter Summary ---
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) Social History Tobacco Use Types Packs/Day Years Used Date Smoking Tobacco: Never Assessed Sex and Gender Information Value Date Recorded Sex Assigned at Not on file Legal Sex Male 4:26 AM WOOD [employer] Gender Identity Not on file Sexual Orientation Not on file documented as of this encounter Plan of Treatment Not on file documented as of this encounter Procedures Procedure Name Priority Date/Time Associated Diagnosis Comments CBC WITH DIFFERENTIAL Routine 02/03/2007 11:30 AM CDT BONE MARROW ASPIRATION & BIOPSY Routine 02/03/2007 10:58 AM CDT FLOW CYTOMETRY REPORT Routine 02/03/2007 9:00 AM CDT FLOW CYTOMETRY REPORT Routine 02/01/2007 1:00 PM CDT CREATININE Routine 02/01/2007 7:50 AM CDT PTT Routine 02/01/2007 4:25 AM CDT PROTIME-INR Routine 02/01/2007 4:25 AM CDT PLATELET COUNT Routine 02/01/2007 4:25 AM CDT URINALYSIS MICROSCOPY ONLY Routine 01/30/2007 1:59 PM CDT URINALYSIS W/REFLEX MICROSCOPIC Routine 01/30/2007 1:59 PM CDT SEDIMENTATION RATE Routine 01/30/2007 4: 20 AM CDT LIPASE Routine 01/30/2007 4:20 AM CDT LACTATE DEHYDROGENASE Routine 01/30/2007 4:20 AM CDT AMYLASE Routine 01/30/2007 4:20 AM CDT COMPREHENSIVE METABOLIC PANEL Routine 01/30/2007 4:[address] HEAD W WO CONTRAST Routine 01/29/2007 11:26 PM CDT XR CHEST PA AND LATERAL 2 VW Routine 01/29/2007 11:26 PM CDT XR CHEST PA AND LATERAL 2 VW Routine 01/29/2007 11:26 PM CDT PET TUMOR OR INFECTION IMG W CT SKB MDTH Routine 01/29/2007 11:[address] BIOPSY ABDOMEN Routine 01/29/2007 11: 26 PM CDT documented in this encounter Results * (ABNORMAL) CBC WITH DIFFERENTIAL (02/03/2007 11:30 AM CDT) WBC 7.5 4.8 - 10.8 K/ul INTERFACE SYSTEM RBC 4.16(L) 4.60 - 6.20 Mil/ul INTERFACE SYSTEM HEMOGLOBIN 11.6(L) 14.0 - 18.0 g/dL INTERFACE SYSTEM HEMATOCRIT 34.1(L) 41.0 - 53.0 % INTERFACE SYSTEM MCV 82.0(L) 84.0 - 103.0 Fl INTERFACE SYSTEM MCH 27.9 27.0 - 34.0 pg INTERFACE SYSTEM MCHC 34.0 30.0 - 35.0 g/dL INTERFACE SYSTEM RDW 12.9 11.0 - 14.5 % INTERFACE SYSTEM PLATELETS 265 140 - 440 K/ul INTERFACE SYSTEM MPV 10.0 8.9 - 12.8 Fl INTERFACE SYSTEM NEUTROPHILS 68.3 42.2 - 75.2 % INTERFACE SYSTEM LYMPHOCYTES 15.3(L) 24.0 - 44.0 % INTERFACE SYSTEM MONOCYTES 13.0(H) 2.0 - 10.0 % INTERFACE SYSTEM EOSINOPHILS 2.9 0.0 - 7.0 % INTERFACE SYSTEM BASOPHILS 0.5 0.0 - 1.0 % INTERFACE SYSTEM NEUTROPHIL ABSOLUTE 5.1 2.0 - 8.0 K/ul INTERFACE SYSTEM LYMPHOCYTE ABSOLUTE 1.2 1.2 - 4.0 K/ul INTERFACE SYSTEM MONOCYTE ABSOLUTE 1.0(H) 0.1 - 0.6 K/ul INTERFACE SYSTEM EOSINOPHIL ABSOLUTE 0.2 0.0 - 0.7 K/ul INTERFACE SYSTEM BASOPHILS ABSOLUTE 0.0 0.0 - 0.2 K/ul INTERFACE SYSTEM 02/03/2007 11:3 0 AM CDT us Isac Locke MD HEMATOLOGY ORDERABLES Edited INTERFACE SYSTEM Refer to clinic/hospital department * BONE MARROW ASPIRATION & BIOPSY (02/03/2007 10:58 AM CDT) DATE OF DRAW 02-03-07 INTERFA CE SYSTEM BONE MARROW OBTAINED BY: Dr Mo Felton INTERFACE SYSTEM BONE MARROW SITE Rt Iliac Crest INTERFACE SYSTEM BONE MARROW SPECIMEN TYPE Aspirate&Bio psy INTERFACE SYSTEM CYTOGENETICS, BM not obtained INTERFACE SYSTEM FLOW CYTOMETRY Obtained INTER FACE SYSTEM BONE MARROW ADEQUACY Adequate INTERFACE SYSTEM BONE MARROW REPORT Obtained INTERFACE SYSTEM 02/03/2007 10:5 8 AM CDT us Isac Locke MD PATHOLOGY/CYTOLOGY ORDERABLES Ed ited INTERFACE SYSTEM Refer to clinic/hospital department * FLOW CYTOMETRY PANEL (02/03/2007 9:00 AM CDT) LEUKEMIA/LYMPHOMA EVALUATION Bone Marrow INTERFACE SYSTEM CLL COMMENTS INTERFA CE SYSTEM Comment: This test was developed and its performance characteristics determined by [facility]. It has not been cleared or approved by the U.S. Food and Drug Administration. The FDA has determined that such clearance or approval is not necessary. This test is used for clinical purposes. It should not be regarded as investigational or for research. This laboratory is certified under the Clinical Laboratory Improvement Amendments of 1988 (CLIA-88) as qualified to perform high complexity clinical laboratory testing. Specimen: Bone Marrow ([id number]) Analysis: CD45 vs. side scatter gating shows the following differential: blasts 2%, granulocytes 55%, erythroids 7%, monocytes 4% and lymphocytes 13%. 1% of nonerythroid cells coexpress CD13 and CD34. 5% of cells in the lymphocyte gate are HLA-DR+/CD13-. The majority of lymphocytes are T cells, expressing CD2, CD3, CD5 and CD7 with a normal CD4:CD8 ratio and no significant CD56. B cells express CD19, CD20, HLA-DR, and variable FMC-7, CD23, and CD10. There is no significant CD5 or CD11c. [place] and lambda expression appears polyclonal. Interpretation: Negative bone marrow study. No significant increase in blasts. No clonal B cell population identified. Interpreted by: Promise Huston 02/03/2007 9:00 AM CDT us Isac Locke MD PATHOLOGY/CYTOLOGY ORDERABLES Ed ited INTERFACE SYSTEM Refer to clinic/hospital department * FLOW CYTOMETRY PANEL (02/01/2007 1:00 PM CDT) LEUKEMIA/LYMPHOMA EVALUATION FNA INTERFACE SYSTEM CLL COMMENTS INTERFA CE SYSTEM Comment: This test was developed and its performance characteristics determined by [facility]. It has not been cleared or approved by the U.S. Food and Drug Administration. The FDA has determined that such clearance or approval is not necessary. This test is used for clinical purposes. It should not be regarded as investigational or for research. This laboratory is certified under the Clinical Laboratory Improvement Amendments of 1988 (CLIA-88) as qualified to perform high complexity clinical laboratory testing. Specimen: Abdominal FNA core ([id number]) Analysis: There is a cell population that is positive for CD10 and HLA-DR. It shows little or no CD19 or CD20 expression, and also does not show clonal kappa or lambda expression. This may be due to suboptimal preservation. Interpretation: Atypical population, with CD10 expression, but lacking demonstrable clonal light chain expression. Interpreted by: Promise Huston 02/01/2007 1:00 PM CDT Isac Locke MD PATHOLOGY/CYTOLOGY ORDERABLES Ed ited Performing Organization Address [facility] Phone Number INTERFACE SYSTEM Refer to clinic/hospital department * CREATININE (02/01/2007 7:50 AM CDT) CREATININE 0.9 0.7 - 1.5 mg/dL INTERFACE SYSTEM 02/01/2007 7:50 AM CDT Isac Locke MD CHEMISTRY ORDERABLES Edited Performing Organization Address [facility] Phone Number INTERFACE SYSTEM Refer to clinic/hospital department * PLATELET COUNT (02/01/2007 4:25 AM CDT) PLATELETS 216 140 - 440 K/ul INTERFACE SYSTEM 02/01/2007 4:25 AM CDT Isac Locke MD HEMATOLOGY ORDERABLES Edited Performing Organization Address [facility] Phone Number INTERFACE SYSTEM Refer to clinic/hospital department * PTT (02/01/2007 4:25 AM CDT) PTT 33.1 21.6 - 35.6 Secs INTERFACE SYSTEM Comment: Therapeutic Range: Hi-level PE/DVT heparin protocol 80.1 -95.0 sec Lo-level PE/DVT heparin protocol 67.1 - 80.0 sec Cardiac Heparin Protocol 67.1 - 85.0 sec Neuro Heparin Protocol 67.1 - 80.0 sec As of 05/06/2006 note change in APTT Normal Range. 02/01/2007 4:25 AM CDT us Isac Locke MD HEMATOLOGY ORDERABLES Edited Performing Organization Address [facility] de Phone Number INTERFACE SYSTEM Refer to clinic/hospital department * PROTIME-INR (02/01/2007 4:25 AM CDT) PROTIME 15.5 13.0 - 15.7 Secs INTERFACE SYSTEM Comment: As of 06 note change in normal range. INR 1.1 INTERFACE SYSTEM Comment: Expected Values for INR: DVT/PE Goal INR 2.5; range 2.0 - 3.0 Valve Replacement Tissue Goal INR 2.5; range 2.0 - 3.0 Mechanical Goal INR 3.0; range 2.5 - 3.5 POST-NJ Goal INR 2.5; range 2.0 - 3.0 or Goal 3.0; range 2.5 - 3.5 Atrial Fibrillation Goal INR 2.5; range 2.0 - 3.0 Ischemic Stroke Goal INR 2.5; range 2.0 - 3.0 For additional information see Guidelines for Anticoagulation available from the pharmacy Layla Neff D. 02/01/2007 4:25 AM CDT us Isac Locke MD HEMATOLOGY ORDERABLES Edited Performing Organization Address [facility] Phone Number INTERFACE SYSTEM Refer to clinic/hospital department * URINALYSIS MICROSCOPY ONLY (01/30/2007 1:59 PM CDT) WBC URINE None Seen 0 - 2 INTERFACE SYSTEM RBC UA 0-2 0 - 2 INTERFACE SYSTEM HYALINE CAST None Seen 0 - 2 INTERFA CE SYSTEM BACTERIA UA None Seen None Seen INTERFAC E SYSTEM 01/30/2007 1:59 PM CDT us Isac Locke MD URINE ORDERABLES Edited Performing Organization Address [facility] Phone Number INTERFACE SYSTEM Refer to clinic/hospital department * (ABNORMAL) URINALYSIS (01/30/2007 1:59 PM CDT) COLOR UA Yellow Straw INTERFACE SYSTEM CLARITY UA Clear Clear INTERFACE SYSTEM LEUKOCYTE ESTERASE UA NEGATIVE NEGATIVE INTERFACE SYSTEM NITRITE UA NEGATIVE NEGATIVE INTERFACE SYSTEM PH UA 6.0 5.0 - 9.0 INTERFACE SYSTEM PROTEIN UA NEGATIVE NEGATIVE INTERFACE SYSTEM GLUCOSE UA NEGATIVE NEGATIVE INTERFACE SYSTEM KETONES UA NEGATIVE NEGATIVE INTERFACE SYSTEM UROBILINOGEN UA 0.2 0.2 INTE RFACE SYSTEM BILIRUBIN UA NEGATIVE NEGATIVE INTERFA CE SYSTEM BLOOD UA Small(A) NEGATIVE INTERFACE SYSTEM SPECIFIC GRAVITY UA 1.010 1.005 - 1.030 INTERFACE SYSTEM MICRO EXAM Yes(A) No INTERFACE SYSTEM 01/30/2007 1:59 PM CDT us Isac Locke MD URINE ORDERABLES Edited Performing Organization Address [facility] Number INTERFACE SYSTEM Refer to clinic/hospital department * SEDIMENTATION RATE (01/30/2007 4:20 AM CDT) ESR (SEDIMENTATION RATE) 18 0 - 20 mm/hr INTERFACE SYSTEM 01/30/2007 4:20 AM CDT us Isac Locke MD HEMATOLOGY ORDERABLES Edited Performing Organization Address [facility] INTERFACE SYSTEM Refer to clinic/hospital department * LIPASE (01/30/2007 4:20 AM CDT) LIPASE 20 6 - 51 U/L INTERFACE SYSTEM 01/30/2007 4:20 AM CDT us Isac Locke MD CHEMISTRY ORDERABLES Edited Performing Organization Address [facility] Phone Number INTERFACE SYSTEM Refer to clinic/hospital department * AMYLASE (01/30/2007 4:20 AM CDT) AMYLASE 35 20 - 104 U/L INTERFACE SYSTEM 01/30/2007 4:20 AM CDT us Isac Locke MD CHEMISTRY ORDERABLES Edited Performing Organization Address [facility] Phone Number INTERFACE SYSTEM Refer to clinic/hospital department * (ABNORMAL) LACTATE DEHYDROGENASE (01/30/2007 4:20 AM CDT) LD (LACTATE DEHYDROGENASE) 232(H) 100 - 190 U/L INTERFACE SYSTEM Comment: As of 05 the [facility] has changed testing methods. The new reference range is 100-190 The old referance range was 250-540 01/30/2007 4:20 AM CDT Isac Locke MD CHEMISTRY ORDERABLES Edited Performing Organization Address [facility] de Phone Number INTERFACE SYSTEM Refer to clinic/hospital department * (ABNORMAL) COMPREHENSIVE METABOLIC PANEL (01/30/2007 4:20 AM CDT) GLUCOSE 135(H) 70 - 110 mg/dL INTERFACE SYSTEM BUN 16 9 - 20 mg/dL INTERFACE SYSTEM CREATININE 0.7 0.7 - 1.5 mg/dL INTERFACE SYSTEM SODIUM 136 136 - 145 mEq/L INTERFACE SYSTEM POTASSIUM 3.9 3.5 - 5.0 mEq/L INTERFACE SYSTEM CHLORIDE 99 95 - 110 mEq/L INTERFACE SYSTEM CO2 29 22 - 32 mmol/l INTERFACE SYSTEM CALCIUM 9.2 8.4 - 10.5 mg/dL INTERFACE SYSTEM TOTAL PROTEIN 7.1 6.3 - 8.2 g/dL INTERFACE SYSTEM ALBUMIN 4.3 3.5 - 5.0 g/dL INTERFACE SYSTEM ALKALINE PHOSPHATASE 94 25 - 100 U/L INTERFACE SYSTEM AST 20 8 - 33 U/L INTERFACE SYSTEM ALT 21 4 - 36 IU/L INTERFACE SYSTEM BILIRUBIN TOTAL 0.5 0.3 - 1.2 mg/dL INTERFACE SYSTEM GLOBULIN (CALC) 2.8 2.4 - 3.9 g/dL INTERFACE SYSTEM ALBUMIN/GLOBULIN RATIO 1.5 1.0 - 2.3 INTERFACE SYSTEM ANION GAP 12 9 - 20 mEq/L INTERFACE SYSTEM OSMOLALITY, CALCULATED 283 275 - 295 mOsm/Kg INTERFACE SYSTEM 01/30/2007 4:20 AM CDT Isac Locke MD CHEMISTRY ORDERABLES Edited Performing Organization Address [facility] Co de Phone Number INTERFACE SYSTEM Refer to clinic/hospital department * XR CHEST PA AND LATERAL (01/29/2007 11:26 PM CDT) Anatomical Region Laterality Modality Chest Other 01/29/2007 11:2 6 PM CDT Narrative 01/29/2007 11:26 PM CDT Exam: Chest - PA and LateralDate/Time of Exam: Feb 04, 2007 5:10:12 PMHistory: Line placement. Comparison: 01/30/2007Findings: Midline structures stable pericardium alae. Interval placement of the indwelling leftsubclavian portacatheter in satisfactory position. Lungs remain grossly clear with no pneumothorax. Apical pleural thickening again noted. - Dictated By: Karl Hernandez D.O. Electronically Signed By: Karl Hernandez D.O. Date Signed: 02/04/07 Procedure Note 04/21/2009 Exam: Chest - PA and LateralDate/Time of Exam: Feb 04, 2007 5:10:12 PMHistory: Line placement. Comparison: 01/30/2007Findings: Midline structures stable pericardium alae. Interval placement of theindwelling leftsubclavian portacatheter in satisfactory position. Lungs remain grossly clear with nopneumothorax. Apical pleural thickening again noted. - Dictated By: Karl Hernandez D.O. Electronically Signed By: Karl Hernandez D.O. Date Signed: 02/04/07 Isac Locke MD DIAGNOSTIC IMAGING ORDERABLES Fi nal Result * PET TUMOR IMG W CT SKL BSE MID THG (01/29/2007 11:26 PM CDT) Anatomical Region Laterality Modality Other 01/29/2007 11:2 6 PM CDT Narrative 01/29/2007 11:26 PM CDT Radionuclide PET Metabolic Tumor Imaging, Evaluation For a Lymphoma: Radiopharmaceutical: [id number] Dose: 13.2 mCiReason for Consultation: Multiple abdominal masses. Evaluation for a lymphoma. After the intravenous administration of S-28-Fapwsptdxqqikjbxse (FDG), a series of overlappingemission and transmission PET images were obtained on a dedicated full ring detector PET scanner. The area imaged spanned the region from the lower cerebrum through the upper thighs. Attenuationcorrected planar 3-D images and volumetric tomographic images in the coronal, transaxial, andparasagittal projections were reviewed. A nondiagnostic, noncontrast, low resolution CT scan wasperformed in conjunction with this examination for the purposes of attenuation correction andanatomic localization. Evaluation of the imaged head and neck region demonstrates physiologic tracer distribution. Evaluationof the thorax demonstrates physiologic tracer distribution throughout both lung field regions. Evaluation of the mediastinum demonstrates several focal areas of mild to mild to moderateincreased metabolic activity scattered throughout the mid mediastinum and both hilar regions. Thereis a somewhat more prominent focal area of increased metabolic activity in the right hilum. Metabolic activity is mildly to moderately increased throughout the distal half of the esophagus. The liver and spleen appear unremarkable. Evaluation of the abdomen and pelvis demonstrate multiplelarge areas of irregular metabolic activity that ranges from mild to marked that is located in theretroperitoneum as well as in the left abdomen, probably involving the mesentery. Metabolicactivity is unremarkable throughout the remainder of the imaged soft tissues of the body and imagedbony skeleton. Impression: The abdominal masses noted on a recent CT scan and the one associated with this study have significantincreased metabolic activity, and therefore, are highly suspicious for a neoplastic process. Thishas the appearance of lymphoma. The mediastinal findings are somewhat low level and nonspecific asto etiology, although the right hilar activity is at least slightly worrisome. The patient appearsto have some degree of mid and distal esophageal inflammation. - Dictated By: Kishor Castellano M.D. Electronically Signed By: Kishor Castellano M.D. Date Signed: 02/04/07 Procedure Note 04/21/2009 Radionuclide PET Metabolic Tumor Imaging, Evaluation For a Lymphoma: Radiopharmaceutical: [id number] Dose: 13.2 mCiReason for Consultation: Multiple abdominal masses. Evaluation for a lymphoma. After the intravenous administration of Q-80-Omcmxhezkaikkhkezm (FDG), aseries of overlappingemission and transmission PET images were obtained on a dedicated full ringdetector PET scanner. The area imaged spanned the region from the lower cerebrum through theupper thighs. Attenuationcorrected planar 3-D images and volumetric tomographic images in the coronal,transaxial, andparasagittal projections were reviewed. A nondiagnostic, noncontrast, low resolution CTscan wasperformed in conjunction with this examination for the purposes of attenuationcorrection andanatomic localization. Evaluation of the imaged head and neck region demonstrates physiologictracer distribution. Evaluationof the thorax demonstrates physiologic tracer distribution throughout bothlung field regions. Evaluation of the mediastinum demonstrates several focal areas of mild tomild to moderateincreased metabolic activity scattered throughout the mid mediastinum and both hilarregions. Thereis a somewhat more prominent focal area of increased metabolic activity in the righthilum. Metabolic activity is mildly to moderately increased throughout the distalhalf of the esophagus. The liver and spleen appear unremarkable. Evaluation of the abdomen andpelvis demonstrate multiplelarge areas of irregular metabolic activity that ranges from mild to marked thatis located in theretroperitoneum as well as in the left abdomen, probably involving themesentery. Metabolicactivity is unremarkable throughout the remainder of the imaged soft tissues of thebody and imagedbony skeleton. Impression: The abdominal masses noted on a recent CT scan and the one associated withthis study have significantincreased metabolic activity, and therefore, are highlysuspicious for a neoplastic process. Thishas the appearance of lymphoma. The mediastinal findings are somewhatlow level and nonspecific asto etiology, although the right hilar activity is at least slightlyworrisome. The patient appearsto have some degree of mid and distal esophageal inflammation. - Dictated By: Kishor Castellano M.D. Electronically Signed By: Kishor Castellano M.D. Date Signed: 02/04/07 Isac Locke MD PE ORDERABLES Final Result * CT BIOPSY ABDOMEN (01/29/2007 11:26 PM CDT) Anatomical Region Laterality Modality Abdomen Other 01/29/2007 11:2 6 PM CDT Narrative 01/29/2007 11:[address] Guided Biopsy: Left retroperitoneal mass - Feb 01, 2007 1:12:30 PMClinical History: Abdominal and left retroperitoneal masses. Technique: Full PARQ conference was held. The patient understood and wished to proceed. Informedwritten consent was obtained. The patient was placed prone on the CT table. Following sterile prep and local anesthesia with 1%lidocaine, 6 core biopsies were obtained coaxially ( 17 -gauge/ 18 -gauge) from the leftretroperitoneal mass under CT guidance. Specimens were sent for analysis. There were no immediatecomplications. Medications: 1.5 mg Versed, 75 mcg fentanyl for uncomplicated intravenous conscious sedation. Findings: CT guided left retroperitoneal mass biopsy was performed as detailed above. Impression: CT-guided left retroperitoneal mass biopsy. - Dictated By: Jose Santizo M.D., Ph.D. Electronically Signed By: Jose Santizo M.D., Ph.D. Date Signed: 02/01/07 Procedure Note 04/21/2009 CT Guided Biopsy: Left retroperitoneal mass - Feb 01, 2007 1:12:30 PMClinical History: Abdominal and left retroperitoneal masses. Technique: Full PARQ conference was held. The patient understood and wished toproceed. Informedwritten consent was obtained. The patient was placed prone on the CT table. Following sterile prep andlocal anesthesia with 1%lidocaine, 6 core biopsies were obtained coaxially ( 17 -gauge/ 18-gauge) from the leftretroperitoneal mass under CT guidance. Specimens were sent for analysis. There were noimmediatecomplications. Medications: 1.5 mg Versed, 75 mcg fentanyl for uncomplicated intravenous conscioussedation. Findings: CT guided left retroperitoneal mass biopsy was performed as detailedabove. Impression: CT-guided left retroperitoneal mass biopsy. - Dictated By: Jose Santizo M.D., Ph.D. Electronically Signed By: Jose Santizo M.D., Ph.D. Date Signed: 02/01/[address] ORDERABLES Final Result * CT HEAD W WO CONTRAST (01/29/2007 11:26 PM CDT) Anatomical Region Laterality Modality Head Other 01/29/2007 11:2 6 PM CDT Narrative 01/29/2007 11:[address] head without and with contrast. History: Rule out metastatic disease. Technique: The examination has been performed without contrast with 100 mL of Optiray-240. The ventricles are normal and the mckay-white junction is well delineated. No abnormal attenuation,mass-effect or enhancement. The paranasal sinuses and mastoid air cells are clear. No calvariallesions. Impression: 1. Normal. - Dictated By: Colette Baker M.D. Electronically Signed By: Colette Baker M.D. Date Signed: 02/01/07 SDM Procedure Note 04/21/2009 CT head without and with contrast. History: Rule out metastatic disease. Technique: The examination has been performed without contrast with 100 mL ofOptiray-240. The ventricles are normal and the mckay-white junction is well delineated.No abnormal attenuation,mass-effect or enhancement. The paranasal sinuses and mastoidair cells are clear. No calvariallesions. Impression: 1. Normal. - Dictated By: Colette Baker M.D. Electronically Signed By: Colette Baker M.D. Date Signed: 02/01/07 SDM Isac Locke MD CT ORDERABLES Final Result * XR CHEST PA AND LATERAL (01/29/2007 11:26 PM CDT) Anatomical Region Laterality Modality Chest Other 01/29/2007 11:2 6 PM CDT Narrative 01/29/2007 11:26 PM CDT Exam: Chest - PA and LateralDate/Time of Exam: Jan 30, 2007 11:57:53 AMHistory: Lymphoma. No prior examination is available for comparison. Mild cardiomegaly without acute consolidativealveolar infiltrate, effusion, or pneumothorax is identified. Biapical pleural thickening/scarformation is present. Old fracture deformity of the anterolateral right fourth rib isidentified. Impression: 1. Cardiomegaly without acute cardiopulmonary process otherwise identified. 2. Biapical pleural thickening/scar formation. 3. Probable old fracture deformity of the anterolateral right 4th rib. - Dictated By: Donnie Cervantes M.D. Electronically Signed By: Donnie Cervantes M.D. Date Signed: 01/30/07 GRB Procedure Note 04/21/2009 Exam: Chest - PA and LateralDate/Time of Exam: Jan 30, 2007 11:57:53 AMHistory: Lymphoma. No prior examination is available for comparison. Mild cardiomegalywithout acute consolidativealveolar infiltrate, effusion, or pneumothorax is identified. Biapical pleuralthickening/scarformation is present. Old fracture deformity of the anterolateral right fourth ribisidentified. Impression: 1. Cardiomegaly without acute cardiopulmonary process otherwiseidentified. 2. Biapical pleural thickening/scar formation. 3. Probable old fracture deformity of the anterolateral right 4th rib. - Dictated By: Donnie Cervantes M.D. Electronically Signed By: Donnie Cervantes M.D. Date Signed: 01/30/07 GRB Isac Locke MD DIAGNOSTIC IMAGING ORDERABLES Fi nal Result documented in this encounter Visit Diagnoses Diagnosis Other malignant lymphomas of intra-abdominal lymph nodes- Primary documented in this encounter Care Teams Rework Operator Relationship Specialty Start Date End Date Vikki Marshall NP [address] [place] [id number] PCP - General 08/15/08 documented as of this encounter
--- OUTSIDE RECORDS SUMMARY | 2024-12-09 16:08 | XMS_ITS ---
Author Organization [facility] Address [address] [facility] Attn: Epic Prelude ADT DA GR[place] [address] Care Team Providers Care Telephone Station Installer Name Role Phone Vikki Marshall TENT FINISHER Primary Care Provider [phone] Active Problems Problem Noted Date Diagnosed Date Nausea and vomiting 06/14/2022 Noninfectious gastroenteritis 06/14/2022 Hypokalemia 11/20/2010 Other malignant lymphomas of intra-abdominal lym ph nodes 11/20/2008 Current Treatment and Therapy Plans No current plan information found. Past Treatment and Therapy Plans No past plan information found. Lifetime Dose Tracking * Chemical Lifetime Dose Automatic Entry Manual Entr y Effective Dose 14.6 mSv 0 mSv 14.6 mSv Total DLP 933 DLP 0 DLP 933 DLP CTDIvol Max 17.8 mGy 0 mGy 17.8 mGy CTDIvol Min 17.8 mGy 0 mGy 17.8 mGy
--- OUTSIDE RECORDS SUMMARY | 2024-12-09 16:08 | XMS_ITS | Encounter Summary ---
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 [address] [place] [address] Abimael Castellanos MD [address] [facility] [address] [place] [address] CHEST PAIN NEC (Primary Dx) Social History Tobacco Use Types Packs/Day Years Used Date Smoking Tobacco: Never Assessed Sex and Gender Information Value Date Recorded Sex Assigned at Not on file Legal Sex Male 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
--- OUTSIDE RECORDS SUMMARY | 2024-12-09 16:08 | XMS_ITS | Patient Health Record ---
Author Organization [facility] Address [address] [facility] [place] [address] Care Team Providers Care Acid Cleaner Name Role Phone Kateysravani BANSALN Mick Primary Care Provider Unav ailable Edin Myers Unavailable [phone] Allergies No Known Allergies Results Component Value Reference Range Flag Notes Schedule Confirmation Reviewed date:10/20/2024 11:30:11 AM Interpretation: Performing Lab: Notes/Report: CTA Coronary with FFR if Indicated Prothrombin Time 00366 (Not yet reviewed by provider) Interpretation: Performing Lab: Notes/Report: ProTime 10.6 9.1-11.9 SEC Normal Range : 9.1-11.9 INR 1.00 .90-1.20 Therapeutic Range: 2.0-3.0 Therapaeutic Range for heart valve replacement: 2.5-3.50 Basic Metabolic Panel (BMP) 04432 (Not yet reviewed by provider) Interpretation: Performing Lab: Notes/Report: Sodium 138 136-145 MMOL/L Potassium 4.1 3.5-5.1 MMOL/L Chloride 100 98-107 MMOL/L CO2 27.9 20.0-31.0 MMOL/L Glucose Serum 95 71-110 MG/DL Testing p erformed at [facility], [address] [place] [address] [place] [address]. CLIA ID#: [id number] BUN 26 7-21 MG/DL HI Creat 1.36 .57-1.17 MG/DL HI K-qdzrdm-b-benzoquino ne imine (NAPQI) is a metabolite of acetaminophen, NAPQI concentrations of apparoximately 10 mg/L correlation to toxic levels of acetaminophen demonstrates a greater than or equil to 10% change in results. NAPQI concentrations greater than this may lead to falsely depressed results for patient samples. Use of this assay is not recommended for patients undergoing treatment with phenindione, due to the potential for falsely depressed results. GFR 55.1 NA Calculation pe rformed from GFR calculator provided by the National Kidney Foundation. Glomerular Filtration rate(GRF) is the best overall index of kidney function. Normal GFR varies according to age,sex, body size, and declines with age. The National Kidney Foundation recommends using the CKD-EPI Creatinine Equation(2020) to estimate GFR. Anion Gap 14 5-15 BUN/Creat Ratio 19.1 12.0-20.0 % Calcium 10.1 8.7-10.4 MG/DL Osmo Serum,Calculated 291 280-300 MOSM/KG Lipid Panel Reflex DLDL 8006 1, 62492 (Not yet reviewed by provider) Interpretation: Performing Lab: Notes/Report: Trig 130 NA Classification Guidelines:Triglycerid es Adults: >20yrs Desirable <150 Borderline High 150-199 High 200-499 Very high >=500 Children: Male 0-4 yr 22-99 5-9 yr 30-101 10-14 yr 32-125 15-19 yr 37-148 Children: Female 0-4 yr 34-112 5-9 yr 32-105 10-14 yr 37-131 15-19 yr 39-132 Chol 152 <=200 MG/DL HDL 40 30-72 MG/DL Reference Ranges:HDL Male: 5-9y 38-75 10-14y 37-74 15-19y 30-63 >=20y 40-59 Female: 5-9y 36-73 10-14y 37-70 15-19y 35-74 >=20y 40-59 CH/HDL 3.8 0.0-4.9 RATIO LDL 86 0-130 MG/DL LDL result is inaccurate , if Trig is >400 mg/dl. See DLDL result. Partial Thromboplastin Time 59848 (Not yet reviewed by provider) Interpretation: Performing Lab: Notes/Report: PTT 24.1 22.6-31.8 SEC Therapeutic Range: 60-100. Critical Value Starting at > 100. CBC Reflex Man Diff 97571, 8 5007 (Not yet reviewed by provider) Interpretation: Performing Lab: Notes/Report: WBC 6.6 4.5-11.0 X10'3 RBC 4.18 4.50-5.90 X10'6 LOW Hgb 12.1 13.5-17.5 G/DL LOW Hct 36.3 41.0-53.0 % LOW MCV 86.8 80.0-100.0 FL MCH 28.9 27.0-31.0 PG MCHC 33.3 31.0-37.0 G/DL Platelet 241 150-400 X10'3 RDW-SD 40.1 35.0-49.0 FL RDW-CV 12.5 12.2-15.6 % MPV 8.8 9.2-12.0 FL LOW Review Auto Diff Conf WBC Auto Diff--78340 (Not ye t reviewed by provider) Interpretation: Performing Lab: Notes/Report: Added by Discern Rules Neutro Auto% 51.3 40.0-70.0 % Lymph Auto% 33.7 22.0-44.0 % [place] Auto% 9.0 3.0-7.0 % HI Eos Auto% 4.6 2.0-4.0 % HI Baso Auto% 0.8 0.0-1.0 % NRBC% .00 .00-.20 /100 intact WBC's Neutro Abs 3.39 .80-7.70 Absolute Neutrophil Count 3390 NA Lymph Abs 2.22 .10-4.10 [place] Abs .59 .20-1.00 Eos Abs .30 .00-.40 Baso Abs .05 .00-.20 NRBC# .00 .00-.20 Imm Gran Abs .04 .00-.10 Imm Gran% .6 .0-.4 % HI US Ext Param Map-42217 (Not ye t reviewed by provider) Interpretation: Performing Lab: Notes/Report: See Below For Report US Ext Param Map Read See Below For Report US Doppler Scan Arterial UE Bilat-97265 (Not yet reviewed by provider) Interpretation: Performing Lab: Notes/Report: See Below For Report US Doppler Scan Arterial UE Bilat Read See Below For Report US Carotid Doppler Bilateral -90637 (Not yet reviewed by provider) Interpretation: Performing Lab: Notes/Report: See Below For Report US Carotid Doppler Bilateral Read See Below For Report Schedule Confirmation (Not y et reviewed by provider) Interpretation: Performing Lab: Notes/Report: Heart Cath Lt poss PTCA Schedule Confirmation (Not y et reviewed by provider) Interpretation: Performing Lab: Notes/Report: Heart Cath Lt poss PTCA zzzHeart Cath Lt poss PTCA ( Not yet reviewed by provider) Interpretation: Performing Lab: Notes/Report: See Below For Report This report was dictated outside of the [employer] natural system. Read See Below For Report US Ext Param Map-92994 (Not ye t reviewed by provider) Interpretation: Performing Lab: Notes/Report: [id number]=iSite US Doppler Scan Arterial UE Bilat-70264 (Not yet reviewed by provider) Interpretation: Performing Lab: Notes/Report: [id number]=iSite US Carotid Doppler Bilateral -39962 (Not yet reviewed by provider) Interpretation: Performing Lab: Notes/Report: [id number]&org=iSite Echo Complete EC-22209 (Not yet reviewed by provider) Interpretation: Performing Lab: Notes/Report: [id number]&org=iSite Echo Complete EC-78625 (Not yet reviewed by provider) Interpretation: Performing Lab: Notes/Report: Cardiopulmonary Services Name: ETHAN GAYTAN Study Date: 11/23/2024 : 1950 Patient Location: [facility] Age: 74 yrs Gender: Male Height: 70 in Weight: 237 lb BP: 130/78 mmHg HR: 70 BSA: 2.2 m2 Reason For Study: SOB, Essential HTN, chest pain, dizziness, abnormal EKG, fatigue Interpretation Summary Overall ejection fraction is approximately 50-55%. There is trace mitral regurgitation. There is trace tricuspid regurgitation. Aortic valve is mildly calcified Recommendations Continue present medication. Will continue to follow regularly. Left Ventricle The left ventricle is normal in size. Overall ejection fraction is approximately 50-55%. Right Ventricle The right ventricle is normal in size and function. Atria The left atrial size is normal. Right atrial size is normal. The interatrial septum is intact with no evidence for an atrial septal defect. Great Vessels The aortic root is normal size. Pericardium/Pleural There is no pericardial effusion. There is no pleural effusion. Mitral Valve There is trace mitral regurgitation. Aortic Valve Aortic valve is mildly calcified. The aortic valve is trileaflet. Tricuspid Valve There is trace tricuspid regurgitation. Right ventricular systolic pressure is normal. Pulmonic Valve The pulmonic valve is not well seen, but is grossly normal. MMode/2D Measurements & Calculations RVDd: 3.7 cm LVIDd: 5.1 cm FS: 26.5 % IVSd: 1.5 cm LVIDs: 3.8 cm EDV(Teich): 126.2 ml LVPWd: 1.7 cm ESV(Teich): 61.1 ml EF(Teich): 51.6 % Ao root diam: 3.8 cm asc Aorta Diam: 3.0 cm LVOT diam: 2.2 cm Ao root area: 11.4 cm2 LVOT area: 3.6 cm2 Time Measurements Aortic HR: 63.6 BPM MM HR: 64.4 BPM Pulm. R-R: 0.94 sec Pulm. HR: 63.9 BPM Doppler Measurements & Calculations MV E max ruth: 96.1 cm/sec MV V2 max: 117.2 cm/sec MV A max ruth: 128.2 cm/sec MV max P.5 mmHg MV dec slope: 376.3 cm/sec2 MV E/A: 0.75 MV V2 mean: 64.3 cm/sec MV dec time: 0.26 sec MV mean P.9 mmHg MV V2 VTI: 34.3 cm MVA(VTI): 2.7 cm2 Ao V2 max: 184.9 cm/sec LV V1 max P.1 mmHg MR max ruth: 262.6 cm/sec Ao max P.7 mmHg LV V1 mean P.1 mmHg MR max P.5 mmHg Ao V2 mean: 130.9 cm/sec LV V1 max: 101.1 cm/sec Ao mean P.7 mmHg LV V1 mean: 66.9 cm/sec Ao V2 VTI: 42.9 cm LV V1 VTI: 25.2 cm CONNIE(I,D): 2.1 cm2 CONNIE(V,D): 2.0 cm2 CO(LVOT): 5.8 l/min PA V2 max: 110.1 cm/sec TR max ruth: 142.5 cm/sec SV(LVOT): 91.7 ml PA max P.8 mmHg TR max P.1 mmHg PA V2 mean: 67.0 cm/sec RVSP(TR): 13.1 mmHg PA mean P.2 mmHg PA V2 VTI: 19.7 cm RAP systole: 5.0 mmHg Ordering Physician: Edin Myers Referring Physician: Edin Myers Performed By: Monet Stanton Schedule Confirmation (Not y et reviewed by provider) Interpretation: Performing Lab: Notes/Report: CT-FFR Schedule Confirmation (Not y et reviewed by provider) Interpretation: Performing Lab: Notes/Report: CT-FFR zzzCTA Coronary with FFR if Indicated RAD Reviewed date:10/20/2024 11:30:11 AM Interpretation: Performing Lab: Notes/Report: See Below For Report CTA Coronary with FFR if Indicated RAD Read See Below For Report zzzCTA Coronary with FFR if Indicated RAD Reviewed date:10/20/2024 11:30:11 AM Interpretation: Performing Lab: Notes/Report: [id number]&org=iSite Schedule Confirmation Reviewed date:09/15/2024 11:15:20 AM Interpretation: Performing Lab: Notes/Report: CTA Coronary with FFR if Indicated [id number] (Not yet review ed by provider) Interpretation: Performing Lab: Notes/Report: [id number]&org=iSite CTA Coronary with FFR if Ind icated-52020 (Not yet reviewed by provider) Interpretation: Performing Lab: Notes/Report: See Below For Report CTA Coronary with FFR if Indicated Diagnosis Description: Shortness of breath Read See Below For Report Basic Metabolic Panel (BMP) 19737 Reviewed date:10/20/2024 11:30:11 AM Interpretation: Performing Lab: Notes/Report: Diagnosis Description: Shortness of breath Diagnosis Description: Essential (primary) hypertension Diagnosis Description: Other chest pain Diagnosis Description: Dizziness and giddiness Diagnosis Description: Abnormal electrocardiogram [ECG] [EKG] Sodium 137 136-145 MMOL/L Potassium 4.2 3.5-5.1 MMOL/L Chloride 101 98-107 MMOL/L CO2 28.3 20.0-31.0 MMOL/L Glucose Serum 81 71-110 MG/DL Testing p erformed at [facility], [address] [place] [address] [place] [address]. CLIA ID#: [id number] BUN 23 7-21 MG/DL HI Creat 1.34 .57-1.17 MG/DL HI V-gqycot-f-benzoquino ne imine (NAPQI) is a metabolite of acetaminophen, NAPQI concentrations of apparoximately 10 mg/L correlation to toxic levels of acetaminophen demonstrates a greater than or equil to 10% change in results. NAPQI concentrations greater than this may lead to falsely depressed results for patient samples. Use of this assay is not recommended for patients undergoing treatment with phenindione, due to the potential for falsely depressed results. GFR 56.0 NA Calculation pe rformed from GFR calculator provided by the National Kidney Foundation. Glomerular Filtration rate(GRF) is the best overall index of kidney function. Normal GFR varies according to age,sex, body size, and declines with age. The National Kidney Foundation recommends using the CKD-EPI Creatinine Equation(2020) to estimate GFR. Anion Gap 12 5-15 BUN/Creat Ratio 17.2 12.0-20.0 % Calcium 9.8 8.7-10.4 MG/DL Osmo Serum,Calculated 287 280-300 MOSM/KG Electrocardiogram (EKG) - 93 000 Reviewed date:09/13/2024 02:10:09 PM Interpretation: Performing Lab: Notes/Report: [id number] (Not yet review ed by provider) Interpretation: Performing Lab: Notes/Report: See Below For Report CT-FFR Diagnosis Description: Abnormal findings on diagnostic imaging of heart and coronary circulation Read See Below For Report Echo Complete EC-[id number] Reviewed date:10/27/2024 11:11:26 AM Interpretation: Performing Lab: Notes/Report: CTA Coronary with FFR if Ind icated-03233 (Not yet reviewed by provider) Interpretation: Performing Lab: Notes/Report: [id number]&org=iSite sqz=[id number]&org=iSite Reason For Referral No Information Medications Medication SIG (Take, Route, Frequency, Duration) Notes Start Date End Date Status amLODIPine Besylate 5 MG Tablet 1 tablet Orally Once a day Active Plavix 75 MG Tablet 1 tablet Orally [...] HRS.; Duration: 30 days 09/13/2024 01/11/2025 Active Mirtazapine 7.5 MG Tablet 2 tablets at b edtime Orally Once a day Active Lovastatin 40 MG Tablet 1 tablet with th e evening meal Orally Once a day Active Gabapentin 300 MG Capsule 1 capsule Orally BID Active DULoxetine HCl 30 MG Capsule Delayed Release Particles 1 capsule Orally Once a day Active Social History Tobacco Use: Social History Observation Description Date Details (start date - stop date) Never Smoker NA - NA Social History Drugs/Alcohol: Social Info Question Answer Notes Caffeine Intake: 1-2 cups per day Tobacco Use: Social Info Question Answer Notes Tobacco Control (Standard) Tobacco use: Nonsmoker Additional Details Category Social Info Options Details Drugs/Alcohol: Do you drink alcohol? No Problems Problem Type SNOMED Code ICD Code Onset Dates Problem Status W/U Status Risk Notes Problem Mixed hyperlipidemia (240140675) Mixed hyperlipidemia (E78.2) Active confirmed Problem Essential hypertension (68111606) Essential hypertension (I10) Active confirmed Problem Atherosclerotic heart disease of [place] coronary artery without angina pectoris (161640858038348) Coronary artery disease involving [place] coronary artery of [place] heart without angina pectoris (I25.10) Active confirmed Problem History of non-Hodgkins lymphoma (248375132) History of non-Hodgkin's lymphoma (Z85.72) Active confirmed Problem Angina (845020389) Atheroscleros 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 with angina pectoris (I25.119) Active confirmed Vital Signs Heart Rate 62 /min 11/23/2024 Height-cm 177.8 cm 11/23/2024 Oximetry 95 % 11/23/2024 Blood pressure diastolic 78 mm Hg 11/23/2024 Weight-kg 108.68 kg 11/23/2024 Height 70 in 11/23/2024 Blood pressure systolic 140 mm Hg 11/23/2024 Weight 239.6 lbs 11/23/2024 BMI 34.38 kg/m2 11/23/2024 Procedures Procedure Date Ordered Date Performed Result Body Sit e Coronary Angio with Left Heart Cath 11/23/2024 12/05/2024 N/A Encounters Encounter Location Date Provider Diagnosis [facility] [address] [place] [address], [place] [address] 11/23/2024 Eidn Myers [facility] [address] [place] [address] 12/08/2024 Edin Myers [facility] [address] [place] [address] 09/13/2024 Edin Myers Mixed hyperlipidemia E78.2 ; SOB (shortness of breath) on exertion R06.02 ; History of non-Hodgkin's lymphoma Z85.72 ; Essential hypertension I10 ; Other chest pain R07.89 ; Dizziness R42 ; Abnormal EKG R94.31 and Other fatigue R53.[address] [place] [address] 11/23/2024 Edin Myers Abnormal computed tomography angiography of heart R93.1 ; Atheroscleros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 with angina pectoris I25.119 ; SOB (shortness of breath) on exertion R06.02 ; Dizziness R42 ; Other fatigue R53.83 ; Swelling R60.9 ; Mixed hyperlipidemia E78.2 ; Essential hypertension I10 and History of non-Hodgkin's lymphoma Z85.[address] [place] [address] 10/25/2024 Edin Myers Abnormal findings on diagnostic imaging of heart and coronary circulation R93.1 ; Abnormal EKG R94.31 ; Other fatigue R53.83 ; Other chest pain R07.89 and SOB (shortness of breath) on exertion R06.[address] [address] 10/27/2024 Edin Myers [address] [place] [address] 11/06/2024 Edin Myers [address] [place] [address] 11/24/2024 Edin Myers [address] [place] [address] 11/27/2024 Edin Myers Assessments Encounter Date Diagnosis (ICD Code) Assessment Notes Treatment Notes Treatment Clinical Notes Section Notes 09/13/2024 Mixed hyperlipidemia (ICD-10 - E78.2) Continue current dose of lovastatin. 09/13/2024 SOB (shortness of breath) on exertion (ICD-10 - R06.02) Obtain echo for baseline structural evaluation. 10/25/2024 Abnormal findings on diagnostic imaging of heart and coronary circulation (ICD-10 - R93.1) 10/25/2024 Abnormal EKG (ICD-10 - R94.31) 11/23/2024 Atheroscleros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 with angina pectoris (ICD-10 - I25.119) Given the patient's abnormal CT FFR and ongoing chest discomfort and shortness of breath, he has been scheduled for cardiac catheterization. Start aspirin 81 mg once per day and Plavix 75 mg once per day. Take nitroglycerin as/if needed. Patient has been recommended for cardiac catheterization. Indications and risks of the procedure were reviewed. These include but are not limited to infection, bruising, bleeding, arterial clot, vessel dissection, injury to kidneys from contrast exposure, as well as the potential for stroke and . Despite these risks the patient wishes to proceed. Patient verbalizes understanding and denies any additional questions or concerns.If patient's symptoms worsen they are to present to the emergency room for further evaluation. 11/23/2024 Abnormal computed tomography angiography of heart (ICD-10 - R93.1) 11/23/2024 SOB (shortness of breath) on exertion (ICD-10 - R06.02) 09/13/2024 History of non-Hodgkin's lymphoma (ICD-10 - Z85.72) 10/25/2024 Other fatigue (ICD-10 - R53.83) 10/25/2024 Other chest pain (ICD-10 - R07.89) 09/13/2024 Essential hypertension (ICD-10 - I10) BP is well controlled. Continue current dose of spironolactone and telmisartan. 11/23/2024 Dizziness (ICD-10 - R42) 09/13/2024 Other chest pain (ICD-10 - R07.89) Given his chest discomfort, shortness of breath, and abnormal EKG, obtain coronary CTA (+ FFR if indicated). Take nitroglycerin as/if needed for chest pain lasting longer than 5 minutes. 11/23/2024 Other fatigue (ICD-10 - R53.83) 10/25/2024 SOB (shortness of breath) on exertion (ICD-10 - R06.02) 09/13/2024 Dizziness (ICD-10 - R42) 11/23/2024 Swelling (ICD-10 - R60.9) 09/13/2024 Abnormal EKG (ICD-10 - R94.31) EKG from today --Indication: chest discomfort Findings: sinus rhythm with right BBB and ventricular rate of 66 BPM. T wave inversions in anterolateral leads. No prior EKG available for comparison. 11/23/2024 Mixed hyperlipidemia (ICD-10 - E78.2) Continue current dose of lovastatin. 11/23/2024 Essential hypertension (ICD-10 - I10) Continue current dose of amlodipine, spironolactone, and telmisartan. 11/23/2024 History of non-Hodgkin's lymphoma (ICD-10 - Z85.72) 09/13/2024 Other fatigue (ICD-10 - R53.83) 09/13/2024 Other Follow up in 3- 4 months. Obtain echo. Meron Garzon am scribing for Edin Myers MD.Edin Garzon MD, personally performed the services prescribed in this documentation , as scribed by Meron Olmedo, and it is both accurate and complete. 11/23/2024 Other Follow up 4 wee ks after intervention. Meron Garzon am scribing for Edin Myers MD.Edin Garzon MD, personally performed the services prescribed in this documentation , as scribed by Meron Olmedo, and it is both accurate and complete. Plan Of Treatment Pending Test Test Name Order Date Prothrombin Time 64744 11/23/2024 Prothrombin Time 84186 12/08/2024 Basic Metabolic Panel (BMP) 39177 2024 Basic Metabolic Panel (BMP) 63589 2024 Basic Metabolic Panel (BMP) 50991 2024 Lipid Panel Reflex DLDL 73642, 39521 Lipid Panel Reflex DLDL 08760, 78702 03/2025 Partial Thromboplastin Time 51004 2024 Partial Thromboplastin Time 44764 2024 CBC Reflex Man Diff 37329, 08979 025 CBC Reflex Man Diff 40220, 67318 025 Echo Complete [id number] 11/23/2024 Echo Complete EC-[id number] 11/23/2024 US Carotid Doppler Bilateral-10727 12/08 US Carotid Doppler Bilateral-62783 12/08 US Doppler Scan Arterial UE Bilat-01662 12/08/2024 US Doppler Scan Arterial UE Bilat-30359 12/08/2024 US Ext Param Map-50790 12/08/2024 US Ext Param Map-79018 12/08/2024 Electrocardiogram 12 Lead Tracing-22925 11/23/2024 WBC Auto Diff--33731 12/08/2024 zzzHeart Cath Lt poss PTCA 12/08/2024 Schedule Confirmation 12/08/2024 Schedule Confirmation 12/08/2024 Schedule Confirmation 10/26/2024 Schedule Confirmation 10/26/2024 CTA Coronary with FFR if Indicated-54939 10/19/2024 CTA Coronary with FFR if Indicated-50648 09/13/2024 [id number] 10/25/2024 [id number] 10/19/2024 Next Appt Details Provider Name:Rossana Justin jim, 01/05/2025 10:45:00 AM, [address] [place] [address], [phone], Insurance Providers Payer Name Payer Address Payer Phone Subscriber Number Group Number Insured Name Patient Relationship to Insured Coverage Start Date Coverage End Date [place] [address] [place] [phone] [id number] Ethan Dinero Self - patient is the insured [place] [address] [employer] [address] [place] [phone] [id number] Ethan Dinero Self - patient is the insured Medical (General) History Medical History History ICD Code hypertension hyperlipidemia cataracts Non Hodgkins Lymphoma skin cancer Surgical History Surgery Date(Month/Year) power port
--- OUTSIDE RECORDS SUMMARY | 2024-12-09 16:08 | XMS_ITS | Encounter Summary ---
Author Organization [facility] Address [address] [place] [address] Care Team Providers Care Link And Link Knitting Machine Operator Name Role Phone Vikki Marshall NP Primary Care Provider Encounter Details Date Type Department Care Team (Late st Contact Info) Description 07/28/2007 Outpatient Historical [facility] [address] [facility] [address] [place] [id number] Isac Locke MD NO ADDRESS ON FILE Social History Tobacco Use Types Packs/Day Years Used Date Smoking Tobacco: Never Assessed Sex and Gender Information Value Date Recorded Sex Assigned at Not on file Legal Sex Male 4:26 AM PMP CERTIFIED PROJECT MANAGER Gender Identity Not on file Sexual Orientation Not on file documented as of this encounter Progress Notes * Virginia Hardy - 07/28/2007 12:00 AM CST Patient Name: Marcus Hwang DOS: 07/28/2007 : 1950 CHIEF COMPLAINT: Malignant lymphoma. HISTORY OF PRESENT ILLNESS: This is a 56-year-old male patient of Dr. Locke who comes in for an evaluation of the above problem. This will be his 8th dose of R/CHOP. By history, he had an intraabdominal mass which was found after complaining of abdominal pain. 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 He had a positive response after three cycles of chemotherapy. After six cycles there was partial continued response. For this reason Dr. Locke elected to proceed with two additional cycles of theCHOP. The patient comes in today. He has had increasing fatigue with his last cycle. He has also had some periods of anxiety but is not on any specific medication for this problem. His feels that he has problems on day 3, 4 and 5, which she associates with the prednisone, and questions if he needs to continue this drug. PAST MEDICAL HISTORY: He has nothing new to add. SOCIAL HISTORY: He is , he lives on a farm in [place], [place]. He is accompanied by his . He does remain fairly active. DRUG ALLERGIES: he has no known drug allergies. CURRENT MEDICATIONS: He is on Atacand, aspirin, Pepcid, prednisone as part of his chemotherapy, Gas-X, Zantac p.r.n., Protonix, multivitamin, Compazine p.r.n., Senna p.r.n., Tylenol P.M. p.r.n. REVIEW OF SYSTEMS: He has had no fevers, chills, nightsweats, sores in his mouth, difficulty swallowing. He has had a lot of gas and abdominal discomfort, questionable reflux, queasiness. He has had also alternating diarrhea and constipation. He did have to go to the emergency room in [facility] to constipation. That is now improved. He is having no urinary change. He denies any leg pain but he does have leg weakness. He denies chest pain. At times he feels slightly short of breath but feels that may be due to his fatigue. He is not coughing any more than normal. PHYSICAL EXAMINATION: Blood pressure was 120/80, pulse 88, temperature 98.2, pain is 4 on a scale of 0 to 10, weight is 222.6, down 4 pounds from his last visit. Performance status is 0 to 1. He is alert, oriented, he does not appear to be in any acute distress. Oropharynx was clear, neck is supple. Breath sounds were clear in all polk. Heart sounds were regular without rubs or gallops. Abdomenis rounded, soft, nontender. No palpable masses, no tenderness in the thigh or calf area. No swelling in his feet and ankles. His gait was steady. LABORATORY DATA: Comprehensive panel is normal. White count was 6500, hemoglobin is 11.7, hematocrit 34.4, platelets 289,000 with 72.3% neutrophils. IMPRESSION: 1. Large B cell lymphoma, here for cycle 8 of R/CHOP with expected toxicities. 2. Anxiety, being started on Xanax, 0.5 mg one every six hours p.r.n. by Dr. Locke. PLAN: I did speak with Dr. Locke. He recommended that we proceed with todays cycle. He would like for the patient to continue with the same dosing on the prednisone, of which the patient was in agreement. He was encouraged to take the Protonix on an every day basis. For prevention of constipation heshould start now on Senna and a stool softener. the plan will be for him in approximately three to three and one-half weeks to have a CT/PET to reassess his status. Dr. Locke says he may need to have radiation to the abdominal area due to the initial size of the tumor. This will be discussed furtherwhen he returns in four weeks. The patient and were in agreement. He will get Neulasta tomorrow at . Time spent was 30 minutes, greater than 50% in discussion. Complexity was high. GAB[facility]EL Ced[facility] Cancer [facility] H[facility] Electronically Signed by GABRIEL Cedillo 08/03/2007 08:56 , A, 424 Job #: Document #: [id number] cc: RADHA Kingston CERTIFIED PROJECT MANAGER documented in this encounter Plan of Treatment Not on file documented as of this encounter Visit Diagnoses Not on filedocumented in this encounter Care Teams Link And Link Knitting Machine Operator Relationship Specialty Start Date End Date Vikki Marshall NP [facility] [place] [address] PCP - General 08/15/08 documented as of this encounter
--- OUTSIDE RECORDS SUMMARY | 2024-12-09 16:08 | XMS_ITS | Clinical Summary ---
Author Organization [facility] Address [address] [facility] Attn: Epic Prelude ADT [place] [address] Care Team Providers Care Electronic Heat Seal Operator Name Role Phone Vikki Marshall LINE ASSEMBLY UTILITY WORKER Primary Care Provider [phone] Allergies No known active allergies Medications amLODIPine (NORVASC) 5 mg tablet Take 5 mg by mouth daily. Active gabapentin (NEURONTIN) 300 mg capsule Take 300 mg by mouth 2 times daily. Active losartan (COZAAR) 50 mg tablet Take 50 mg by mouth late in the day. Active lovastatin (MEVACOR) 40 mg tablet Take 40 mg by mouth daily with supper. Active VIT-IRON FUM-FOLIC AC ORAL Take 1 Tablet by mouth daily. Active prochlorperazine maleate (COMPAZINE) 10 mg tablet Take 10 mg by mouth every 6 hours as needed for Nausea/Emes is. 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 11/20/2008 Social History Tobacco Use Types Packs/Day Years Used Date Smoking Tobacco: Never Smokeless Tobacco: Never Tobacco Cessation:Counseling Given: Not Answered Alcohol Use Standard Drinks/Week Comments No 0 (1 standard drink = 0.6 oz pur e alcohol) Sex and Gender Information Value Date Recorded Sex Assigned at Not on file Legal Sex Male 9:42 AM SERVICE ADVOCATE CONTACT Gender Identity Not on file Sexual Orientation Not on file Last Filed Vital Signs Vital Sign Reading Time Taken Comments Blood Pressure 150/85 06/14/2022 1:10 PM SERVICE ADVOCATE CONTACT Pulse 80 06/14/2022 1:10 PM SERVICE ADVOCATE CONTACT Temperature 36.8 C (98.2 F) 06/14/2022 1:10 PM SERVICE ADVOCATE CONTACT Respiratory Rate 20 06/14/2022 1:10 PM SERVICE ADVOCATE CONTACT Oxygen Saturation 97% 06/14/2022 1:10 PM SERVICE ADVOCATE CONTACT Inhaled Oxygen Concentration - - Weight 100.9 kg (222 lb 6.4 oz) 023 10:42 AM SERVICE ADVOCATE CONTACT Height 182.9 cm (6') 06/14/2022 10:42 AM SERVICE ADVOCATE CONTACT Body Mass Index 30.16 06/14/2022 10:42 AM SERVICE ADVOCATE CONTACT Plan of Treatment Health Maintenance Due Date Last Done Comments DTAP/TDAP/TD VACCINES (1 - Tdap) 09/24/1970 PNEUMOCOCCAL VACCINE 50+ YEARS (1 of 2 - PCV) 09/24/18 71 ZOSTER VACCINE (1 of 2) 09/24/1970 COLORECTAL SCREENING 09/24/1996 Colorectal Cancer Screening 09/24/1996 FIT-DNA Q 3 years 09/24/1996 FIT/FOBT Q 1 year 09/24/1996 Flex Sig/CT Colonography Q 5 years 09/24/1996 RSV VACCINE (60+ or ) (1 - Risk 60-74 years 1-dose series) 2011 COVID-19 Vaccine (2 - Moderna risk series) 08/30/2020 08/02/2020 INFLUENZA VACCINE (#1) 2024 Medical Devices Implanted Type Area Rail Car Operator Device Identifier Shelf Expiration Date Model / Serial / Lot Port [place] [address] [place] [address] MEDICARE PART A AND B Care Teams Electronic Heat Seal Operator Relationship Specialty Start Date End Date Vikki Marshall NP [address] [place] [address] [place] [address] PCP - General 08/15/08
--- OUTSIDE RECORDS SUMMARY | 2024-12-09 16:08 | XMS_ITS | Encounter Summary ---
Author Organization [facility] Address [address] [place] [address] Care Team Providers Care Infantry Assaultman Name Role Phone Vikki Marshall NP Primary Care Provider [phone] Encounter Details Date Type Department Care Team (Latest Contact Info) Description 02/28/2007 Outpatient Historical [facility] Cancer and Hematology [facility] [place] [facility] [address] [place] [address] Isac Locke MD NO ADDRESS ON FILE Other Malignant Lymphomas of Intra-Abdominal Lymph Nodes (CMS/HCC) (Primary Dx) Social History Tobacco Use Types Packs/Day Years Used Date Smoking Tobacco: Never Assessed Sex and Gender Information Value Date Recorded Sex Assigned at Not on file Legal Sex Male 4:26 AM PRESS OPERATOR ASSISTANT Gender Identity Not on file Sexual Orientation Not on file documented as of this encounter Plan of Treatment Not on file documented as of this encounter Visit Diagnoses Diagnosis Other malignant lymphomas of intra-abdominal lymph nodes- Primary documented in this encounter Care Teams Infantry Assaultman Relationship Specialty Start Date End Date Vikki Marshall NP [address] [place] [address] PCP - General 08/15/08 documented as of this encounter
--- OUTSIDE RECORDS SUMMARY | 2024-12-09 16:08 | XMS_ITS | Encounter Summary ---
Author Organization [facility] Address [address] [place] [address] Care Team Providers Care Secretary To The Vice President Name Role Phone Vikki Marshall NP Primary Care Provider [phone] Encounter Details Date Type Department Care Team (Latest Contact Info) Description 02/14/2007 Outpatient Historical [facility]ology [facility] [address] [place] [address] Virginia Hardy FNP NO ADDRESS ON FILE Other Malignant Lymphomas of Intra-Abdominal Lymph Nodes (CMS/HCC) (Primary Dx) Social History Tobacco Use Types Packs/Day Years Used Date Smoking Tobacco: Never Assessed Sex and Gender Information Value Date Recorded Sex Assigned at Not on file Legal Sex Male 4:26 AM SECURITY ADVISOR Gender Identity Not on file Sexual Orientation Not on file documented as of this encounter Plan of Treatment Not on file documented as of this encounter Visit Diagnoses Diagnosis Other malignant lymphomas of intra-abdominal lymph nodes- Primary documented in this encounter Care Teams Secretary To The Vice President Relationship Specialty Start Date End Date Vikki Marshall NP [address] [place] [address] PCP - General 08/15/08 documented as of this encounter
--- OUTSIDE RECORDS SUMMARY | 2024-12-09 16:08 | XMS_ITS | Encounter Summary ---
Author Organization [facility] Address [address] [place] [address] Care Team Providers Care Career Services Assistant Name Role Phone Vikki Marshall NP Primary Care Provider [phone] Encounter Details Date Type Department Care Team (Latest Contact Info) Description 04/14/2007 Outpatient Historical [facility] Cancer and Hematology [facility] [address] [place] [address] Isac Locke MD NO ADDRESS ON FILE Other Malignant Lymphomas of Intra-Abdominal Lymph Nodes (CMS/HCC) (Primary Dx); Encounter for Antineoplastic Immunotherapy; Adv Eff Med/Biol NEC/NOS; Encounter for Antineoplastic Chemotherapy Social History Tobacco Use Types Packs/Day Years Used Date Smoking Tobacco: Never Assessed Sex and Gender Information Value Date Recorded Sex Assigned at Not on file Legal Sex Male 4:26 AM WEIGH BOSS Gender Identity Not on file Sexual Orientation Not on file documented as of this encounter Plan of Treatment Not on file documented as of this encounter Visit Diagnoses Diagnosis Other malignant lymphomas of intra-abdominal lymph nodes- Primary Encounter for antineoplastic immunotherapy Unspecified adverse effect of other drug, medicinal and biological substance(995.29) Unspecified adverse effect of other drug, medicinal and biological substance Encounter for antineoplastic chemotherapy documented in this encounter Care Teams Career Services Assistant Relationship Specialty Start Date End Date Vikki Marshall NP [address] [place] [address] PCP - General 08/15/08 documented as of this encounter
--- OUTSIDE RECORDS SUMMARY | 2024-12-09 16:08 | XMS_ITS | Clinical Summary ---
Author Organization [facility] Address [address] [place] [address] Care Team Providers Care Dealer Relationship Manager Name Role Phone Vikki Marshall NP Primary Care Provider [phone] Allergies No known active allergies Medications candesartan (ATACAND) 4 mg Oral TabIndications:O ther malignant lymphomas of intra-abdominal lymph nodes Take 4 mg by mouth daily at bedtime. Active MULTIVITAMINS (MULTIVITAMIN PO)Indications:O ther malignant lymphomas of intra-abdominal lymph nodes Take 1 Tab by mouth daily. Active FAMOTIDINE (PEPCID PO)Indications:O ther malignant lymphomas of intra-abdominal lymph nodes Take 1 Tab by mouth 1 time daily as needed. OTC Active ACETAMINOPHEN (TYLENOL PO)Indications:O ther malignant lymphomas of intra-abdominal lymph nodes Take 2 Tabs by mouth every 4 hours as needed. Active aspirin (LEN) 81 mg Oral Tab Take 81 mg by mouth daily. 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 11/20/2008 Social History Tobacco Use Types Packs/Day Years Used Date Smoking Tobacco: Never Alcohol Use Standard Drinks/Week Comments No 0 (1 standard drink = 0.6 oz pur e alcohol) Sex and Gender Information Value Date Recorded Sex Assigned at Not on file Legal Sex Male 4:26 AM OUTDOOR RECREATION SPECIALIST Gender Identity Not on file Sexual Orientation Not on file Last Filed Vital Signs Vital Sign Reading Time Taken Comments Blood Pressure 162/80 08/05/2015 2:22 PM OUTDOOR RECREATION SPECIALIST Pulse 68 08/05/2015 2:22 PM OUTDOOR RECREATION SPECIALIST Temperature 36.6 C (97.8 F) 08/05/2015 2:22 PM OUTDOOR RECREATION SPECIALIST Respiratory Rate 18 03/21/2009 1:33 PM CDT Oxygen Saturation 94% 08/05/2015 2:22 PM OUTDOOR RECREATION SPECIALIST Inhaled Oxygen Concentration - - Weight 97.5 kg (215 lb) 08/05/2015 2:22 PM OUTDOOR RECREATION SPECIALIST Height 182.9 cm (6') 08/05/2015 2:22 PM OUTDOOR RECREATION SPECIALIST Body Mass Index 29.16 08/05/2015 2:22 PM OUTDOOR RECREATION SPECIALIST Plan of Treatment Health Maintenance Due Date Last Done Comments DTAP/TDAP/TD VACCINES (1 - Tdap) 09/24/1970 COLORECTAL SCREENING 09/24/1996 Colorectal Cancer Screening 09/24/1996 FIT-DNA Q 3 years 09/24/1996 FIT/FOBT Q 1 year 09/24/1996 Flex Sig/CT Colonography Q 5 years 09/24/1996 PNEUMOCOCCAL VACCINE 50+ YEARS (1 of 1 - PCV) 09/25/19 02 ZOSTER VACCINE (1 of 2) 09/24/2001 INFLUENZA VACCINE (#1) 2024 RSV VACCINE (60+ or ) (1 - 1-dose 75+ series) 09/24/2026 Advance Directives For more information, please contact: [phone] * Full Code (Latest Code Status on File) Date Activated Date Inactivated Comments 03/21/2009 1:09 PM 03/22/2009 2:01 AM * Full Code Date Activated Date Inactivated Comments 03/21/2009 11:34 AM 03/21/2009 1:09 PM Care Teams Dealer Relationship Manager Relationship Specialty Start Date End Date Vikki Marshall NP [address] [place] [address] PCP - General 08/15/08
--- OUTSIDE RECORDS SUMMARY | 2024-12-09 16:08 | XMS_ITS | Encounter Summary ---
Author Organization [facility] Address [address] [place] [address] Care Team Providers Care Pediatric Assistant Name Role Phone Vikki Marshall NP Primary Care Provider [phone] Encounter Details Date Type Department Care Team (Latest Contact Info) Description 04/14/2007 Outpatient Historical [facility] Cancer and Hematology [address] [place] [address] [address] [place] [address] Virginia Hardy FNP NO ADDRESS ON FILE Other Malignant Lymphomas of Intra-Abdominal Lymph Nodes (CMS/HCC) (Primary Dx); Secondary Malig Alphonso Bone Social History Tobacco Use Types Packs/Day Years Used Date Smoking Tobacco: Never Assessed Sex and Gender Information Value Date Recorded Sex Assigned at Not on file Legal Sex Male 4:26 AM DIET ATTENDANT Gender Identity Not on file Sexual Orientation Not on file documented as of this encounter Plan of Treatment Not on file documented as of this encounter Visit Diagnoses Diagnosis Other malignant lymphomas of intra-abdominal lymph nodes- Primary 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
--- OUTSIDE RECORDS SUMMARY | 2024-12-09 16:08 | XMS_ITS | Encounter Summary ---
Author Organization [facility] Address [address] [place] [address] Care Team Providers Care Customs Compliance Manager Name Role Phone Vikki Marshall NP Primary Care Provider [phone] Encounter Details Date Type Department Care Team (Latest Contact Info) Description 03/01/2007 Outpatient Historical [facility] Cancer and Hematology [facility] [address] [place] [address] Isac oLcke MD NO ADDRESS ON FILE Encounter for Long-Term (Current) Use of Other Medications (Primary Dx); Other Malignant Lymphomas of Intra-Abdominal Lymph Nodes (CMS/HCC) Social History Tobacco Use Types Packs/Day Years Used Date Smoking Tobacco: Never Assessed Sex and Gender Information Value Date Recorded Sex Assigned at Not on file Legal Sex Male 4:26 AM JIG MAKER Gender Identity Not on file Sexual Orientation Not on file documented as of this encounter Plan of Treatment Not on file documented as of this encounter Visit Diagnoses Diagnosis Encounter for long-term (current) use of other medications- Primary Other malignant lymphomas of intra-abdominal lymph nodes documented in this encounter Care Teams Customs Compliance Manager Relationship Specialty Start Date End Date Vikki Marshall NP [address] [place] [address] PCP - General 08/15/08 documented as of this encounter
--- OUTSIDE RECORDS SUMMARY | 2024-12-09 16:08 | XMS_ITS ---
Author Organization [facility] Address [address] [place] [address] Care Team Providers Care Systems Lead Name Role Phone Vikki Marshall GM Primary Care Provider [phone] Active Problems Problem Noted Date Diagnosed Date Hypokalemia 11/20/2010 Other malignant lymphomas of intra-abdominal lym ph nodes 11/20/2008 Current Treatment and Therapy Plans No current plan information found. Past Treatment and Therapy Plans No past plan information found. Lifetime Dose Tracking * Chemical Lifetime Dose Automatic Entry Manual Entr y Effective Dose 14.6 mSv 14.6 mSv 0 mSv Total DLP 933 DLP 933 DLP 0 DLP CTDIvol Max 17.8 mGy 17.8 mGy 0 mGy CTDIvol Min 17.8 mGy 17.8 mGy 0 mGy
--- OUTSIDE RECORDS SUMMARY | 2024-12-09 16:08 | XMS_ITS | Encounter Summary ---
Author Organization [facility] Address [address] [place] [address] Care Team Providers Care Facilities Director Name Role Phone Vikki Marshall SUPERVISOR ACOUSTICAL TILE CARPENTERS Primary Care Provider [phone] Encounter Details Date Type Department Care Team (Late st Contact Info) Description 06/30/2007 Outpatient Historical [facility] Cancer and Hematology [facility] [address] [place] [address] Isac Locke MD NO ADDRESS ON FILE Social History Tobacco Use Types Packs/Day Years Used Date Smoking Tobacco: Never Assessed Sex and Gender Information Value Date Recorded Sex Assigned at Not on file Legal Sex Male 4:26 AM PUBLIC RELATIONS WRITER Gender Identity Not on file Sexual Orientation Not on file documented as of this encounter Plan of Treatment Not on file documented as of this encounter Procedures Procedure Name Priority Date/Time Associated Diagnosis Comments CBC WITH DIFFERENTIAL Routine 07/28/2007 7:28 AM PUBLIC RELATIONS WRITER COMPREHENSIVE METABOLIC PANEL Routine 07/28/2007 7:28 AM PUBLIC RELATIONS WRITER documented in this encounter Results * (ABNORMAL) COMPREHENSIVE METABOLIC PANEL (07/28/2007 7:28 AM PUBLIC RELATIONS WRITER) GLUCOSE 163(H) 70 - 100 MG/DL [facility] [place] GLUCOSE Reference interval only valid for fasting specimens [facility] [place] BUN 13 6 - 20 MG/DL [facility] [place] CREATININE 0.8 0.5 - 1.2 MG/DL [facility] [place] SODIUM 133(L) 134 - 145 MEQ/L [facility] [place] POTASSIUM 3.3(L) 3.5 - 5.1 MEQ/L [facility] [place] CHLORIDE 99 96 - 108 MEQ/L [facility] [place] CO2 28 22 - 32 MMOL/L [facility] [place] CALCIUM 9.3 8.5 - 10.6 MG/DL [facility] [place] TOTAL PROTEIN 6.7 5.9 - 8.2 G/DL [facility] [place] ALBUMIN 4.0 3.4 - 4.8 G/DL [facility] [place] AST 16 12 - 43 IU/L [facility] [place] ALT 18 4 - 51 IU/L [facility] [place] ALKALINE PHOSPHATASE 71 40 - 129 IU/L [facility] [place] BILIRUBIN TOTAL 0.4 0.2 - 1.0 MG/DL [facility] [place] ANION GAP 9 9 - 20 MEQ/L [facility] [place] GLOBULIN (CALC) 2.7 2.4 - 3.9 G/DL [facility] [place] ALBUMIN/GLOBULI N RATIO 1.5 1.0 - 2.3 RATIO [facility] [place] OSMOLALITY, CALCULATED 277 275 - 295 MOSM/KG [facility] [place] GFR >60 >60 mL/min/1. 73m [facility] [place] GFR, >60 >60 mL/min/1. 73m [facility] [place] 07/28/2007 7:28 AM PUBLIC RELATIONS WRITER 07/28/2007 7:33 AM PUBLIC RELATIONS WRITER us Isac Locke MD CHEMISTRY ORDERABLES Final Resul t [facility] [place] CLIA# [id number] [id number] [place] [address] * (ABNORMAL) CBC WITH DIFFERENTIAL (07/28/2007 7:28 AM PUBLIC RELATIONS WRITER) WBC 6.5 4.8 - 10.8 K/UL [facility] [place] RBC 4.02(L) 4.6 - 6.2 M/UL [facility] [place] HEMOGLOBIN 11.7(L) 14.0 - 18.0 G/DL [facility] [place] HEMATOCRIT 34.4(L) 41 - 53 % [facility] [place] MCV 85.6 82 - 100 FL [facility] [place] MCH 29.1 27 - [address] [facility] [place] MCHC 34.0 31 - 37 G/DL [facility] [place] RDW 13.2 11 - 14.5 % [facility] [place] PLATELETS 289 140 - 440 K/UL [facility] [place] MPV 9.0 8.9 - 12.8 FL [facility] [place] NEUTROPHILS 72.3 42.2 - 75.2 % [facility] [place] LYMPHOCYTES 11.3(L) 24 - 44 % [facility] [place] MONOCYTES 13.8(H) 2 - 10 % [facility] [place] EOSINOPHILS 2.0 0 - 7 % [facility] [place] BASOPHILS 0.6 0 - 1 % [facility] [place] NEUTROPHIL ABSOLUTE 4.7 1.4 - 6.5 K/uL [facility] [place] LYMPHOCYTE ABSOLUTE 0.7(L) 1.2 - 4.0 K/UL [facility] [place] MONOCYTE ABSOLUTE 0.9(H) 0.1 - 0.6 K/UL [facility] [place] EOSINOPHIL ABSOLUTE 0.1 0 - 0.7 K/UL [facility] [place] BASOPHILS ABSOLUTE 0.0 0 - 0.2 K/UL [facility] [place] 07/28/2007 7:28 AM PUBLIC RELATIONS WRITER 07/28/2007 7:33 AM PUBLIC RELATIONS WRITER us Isac Locke MD HEMATOLOGY ORDERABLES Final Resu lt [facility] [place] CLIA# [id number] [address] [place] [address] documented in this encounter Visit Diagnoses Not on filedocumented in this encounter Care Teams Facilities Director Relationship Specialty Start Date End Date Vikki Marshall NP [address] [place] [address] PCP - General 08/15/08 documented as of this encounter
--- OUTSIDE RECORDS SUMMARY | 2024-12-09 16:08 | XMS_ITS | Encounter Summary ---
Author Organization [facility] Address [address] [place] [address] Care Team Providers Care Client Services Representative Name Role Phone Vikki Marshall NP Primary Care Provider [phone] Encounter Details Date Type Department Care Team (Latest Contact Info) Description 02/28/2007 Outpatient Historical [facility] Cancer and Hematology [address] [place] [address] [address] [place] [address] Isac Locke MD NO ADDRESS ON FILE Other Malignant Lymphomas of Intra-Abdominal Lymph Nodes (CMS/HCC) (Primary Dx); Encounter for Antineoplastic Immunotherapy; Adv Eff Med/Biol NEC/NOS; Encounter for Antineoplastic Chemotherapy Social History Tobacco Use Types Packs/Day Years Used Date Smoking Tobacco: Never Assessed Sex and Gender Information Value Date Recorded Sex Assigned at Not on file Legal Sex Male 4:26 AM SOCIAL RESEARCH ASSISTANT Gender Identity Not on file Sexual [...] chemotherapy documented in this encounter Care Teams Client Services Representative Relationship Specialty Start Date End Date Vikki Marshall NP [address] [place] [address] PCP - General 08/15/08 documented as of this encounter
--- OUTSIDE RECORDS SUMMARY | 2024-12-09 16:08 | XMS_ITS | Encounter Summary ---
Author Organization [facility] Address [address] [place] [address] Care Team Providers Care Customer Service Officer Name Role Phone Vikki Marshall NP Primary Care Provider [phone] Encounter Details Date Type Department Care Team (Late st Contact Info) Description 07/28/2007 Outpatient Historical [facility] Cancer and Hematology [address] [place] [address] [address] [place] [address] Isac Locke MD NO ADDRESS ON FILE Social History Tobacco Use Types Packs/Day Years Used Date Smoking Tobacco: Never Assessed Sex and Gender Information Value Date Recorded Sex Assigned at Not on file 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
--- OUTSIDE RECORDS SUMMARY | 2024-12-09 16:08 | XMS_ITS | Encounter Summary ---
Author Organization [facility] Address [address] [place] [address] Care Team Providers Care Insulation Engineman Name Role Phone Vikki Marshall NP Primary Care Provider [phone] Encounter Details Date Type Department Care Team (Late st Contact Info) Description 06/30/2007 Outpatient Historical [facility] Cancer and Hematology [facility] [address] [place] [address] Isac Locke MD NO ADDRESS ON FILE Social History Tobacco Use Types Packs/Day Years Used Date Smoking Tobacco: Never Assessed Sex and Gender Information Value Date Recorded Sex Assigned at Not on file 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 Marcus returns today for followup of the above problem. By history, Marcus was discovered to have a malignant lymphoma with a very large mass in his abdomen that was at least 14 to 15 cm in size. He ultimately has undergone treatment with CHOP/Rituxan, having completed a total of six cycles of therapy. Today he returns. He has had restaging studies performed. The results of the restaging studies shows no areas of active disease on PET scan, but he still has an abdominal mass that measures 4 x 7 cm in size. From a symptom standpoint, he is not having really any symptoms at all. Says he is eatingall right, bowels and bladder have been doing fine. Does have some extra gas from time to time. PAST MEDICAL HISTORY: he had nothing new to report. SOCIAL/FAMILY HISTORY: reviewed with no changes. He is accompanied by his today. 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 REVIEW OF SYSTEMS: Weight remains stable. HEENT - no changes in visual or auditory acuity, no epistaxis, no sinus discomfort, no sore throat or pharyngitis symptoms. Neck - no adenopathy or neck pain. Chest - no shortness of breath, no paroxysmal nocturnal dyspnea, no orthopnea. Heart - no palpitations, chest pain, angina, myocardial infarction, no recent cardiac events. Abdomen - no melena, no hematochezia, no hemoptysis. Genitourinary - no hematuria, no renal stones, no bladder discomfort or pain. Extremities - no bone pain or joint swelling. Neurological - no paresthesia, numbness, or fasciculations. PHYSICAL EXAMINATION: On exam he is alert, he is oriented. Vital signs are as noted on his flow sheet. I find no enlarged lymph nodes in the neck, supraclavicular, axillary or inguinal areas. Chest sounds are clear without rales, rhonchi or wheezes. Heart sounds regular without murmur, rub or gallop. Abdomen soft, nontender with no hepatosplenomegaly, guarding or rebound. LABORATORY DATA: Laboratory studies done today include an LDH value which is normal at 211. Comprehensive profile is unremarkable except for a glucose of 141. CBC shows blood counts that look adequate for treatment. IMPRESSION and PLAN: At this point in time he has had a partial remission on the basis of CT scans and complete remission on the basis of PET scan. I have reviewed with he and his that I believethat I would recommend that we go ahead and complete out a total of 8 cycles of CHOP, of which he has two remaining, including today. Then, on the basis of that re-scan and then make further plan from there. The patient understands the information. Is wanting to go ahead and proceed as recommended and as such we will begin the first of two cycles of CHOP today. Time spent 25 minutes, 50% of time in counseling. Complexity is high. Isac Locke M.D. Cancer & Hematology Electronically Signed by Isac Locke M.D. 07/08/2007 10:55 , P, 424 Job #: Document #: [id number] cc: BURNER documented in this encounter Plan of Treatment Not on file documented as of this encounter Visit Diagnoses Not on filedocumented in this encounter Care Teams Insulation Engineman Relationship Specialty Start Date End Date Vikki Marshall NP [address] [place] [address] PCP - General 08/15/08 documented as of this encounter
--- OUTSIDE RECORDS SUMMARY | 2024-12-09 16:08 | XMS_ITS | Encounter Summary ---
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/HCC) Social History Tobacco Use Types Packs/Day Years Used Date Smoking Tobacco: Never Assessed Sex and Gender Information Value Date Recorded Sex Assigned at Not on file 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 Gender Identity Not on file Sexual Orientation Not on file documented as of this encounter Plan of Treatment Not on file documented as of this encounter Procedures Procedure Name Priority Date/Time Associated Diagnosis Comments POC GLUCOSE Routine 02/16/2008 1:01 PM CDT PET TUMOR OR INFECTION IMG W CT SKB MDTH Routine 02/16/2008 1:00 PM CDT documented in this encounter Results * POC GLUCOSE (02/16/2008 1:01 PM CDT) GLUCOSE POC 90 60 - 100 mg/dL [facility] Venous blood specimen (specimen) 02/16/2008 1:01 PM CDT 02/20/2008 7:54 AM CDT us Isac Locke MD POINT OF CARE TESTING Final Resu lt INTERFACE SYSTEM Refer to clinic/hospital department [facility] CLIA# [id number] [address] [place] [address] * PET TUMOR IMG W CT SKL BSE MID THG (02/16/2008 1:00 PM CDT) Anatomical Region Laterality Modality Other 02/16/2008 1:00 PM CDT Narrative 02/16/2008 5:40 PM CDT Radionuclide PET Metabolic Tumor Imaging, Restaging of Non-Hodgkin's Lymphoma: Radiopharmaceutical: [id number] Dose: 11.7 mCi Reason for Consultation: Diffuse large B-cell lymphoma. Status post chemotherapy and radiation therapy. Reevaluation for disease extent. After the intravenous administration of F-04-Zoavgxwxgmzxundjyc (FDG), a series of overlapping emission and transmission PET images were obtained on a dedicated full ring detector PET scanner. The area imaged spanned the region from the lower cerebrum through the upper thighs. Attenuation corrected planar 3-D images and volumetric tomographic images in the coronal, transaxial, and parasagittal projections were reviewed. A nondiagnostic, noncontrast, low resolution CT scan was performed in conjunction with this examination for the purposes of attenuation correction and anatomic localization. Today's study is compared with previous examinations, the latest being dated 08/19/2007. Evaluation of the imaged head and neck region demonstrates physiologic tracer distribution. Evaluation of the thorax demonstrates physiologic tracer distribution throughout both lung field regions. Evaluation of the mediastinum demonstrates several focal areas of mild to moderate increased metabolic activity scattered throughout the mid mediastinum, particularly the right hilar region. The liver and spleen appear unremarkable. Metabolic activity also appears unremarkable throughout the abdomen and pelvis. Metabolic activity also appears unremarkable throughout the remainder of the imaged soft tissues of the body and imaged bony skeleton. Impression: Since the previous examination of 08/19/2007 there has been no significant interval change. The mediastinal findings were noted previously and are unchanged. At the present time, I do not see conclusive evidence for metabolically active recurrent lymphoma. - Dictated By: Kishor Castellano M.D. Electronically Signed By: Kishor Castellano M.D. Date Signed: 02/16/08 MALA Procedure Note Kishor Castellano - 02/16/2008 Radionuclide PET Metabolic Tumor Imaging, Restaging of Non-Hodgkin'sLymphoma: Radiopharmaceutical: [id number] Dose: 11.7 mCi Reason for Consultation: Diffuse large B-cell lymphoma. Status postchemotherapy and radiation therapy. Reevaluation for disease extent. After the intravenous administration of B-60-Omixmzabxavxpkdtig (FDG), aseries of overlapping emission and transmission PET images were obtained on a dedicated full ringdetector PET scanner. The area imaged spanned the region from the lower cerebrum through the upper thighs.Attenuation corrected planar 3-D images and volumetric tomographic images in the coronal, transaxial, andparasagittal projections were reviewed. A nondiagnostic, noncontrast, low resolution CT scan wasperformed in conjunction with this examination for the purposes of attenuation correction and anatomiclocalization. Today's study is compared with previous examinations, the latest being dated 08/19/2007. Evaluation of the imaged head and neck region demonstrates physiologictracer distribution. Evaluation of the thorax demonstrates physiologic tracer distribution throughout bothlung field regions. Evaluation of the mediastinum demonstrates several focal areas of mild to moderateincreased metabolic activity scattered throughout the mid mediastinum, particularly the right hilarregion. The liver and spleen appear unremarkable. Metabolic activity also appears unremarkablethroughout the abdomen and pelvis. Metabolic activity also appears unremarkable throughout the remainder ofthe imaged soft tissues of the body and imaged bony skeleton. Impression: Since the previous examination of 08/19/2007 there has been no significantinterval change. The mediastinal findings were noted previously and are unchanged. At thepresent time, I do not see conclusive evidence for metabolically active recurrent lymphoma. - Dictated By: Kishor Castellano M.D. Electronically Signed By: Kishor Castellano M.D. Date Signed: 02/16/08 MALA Isac Locke MD PE ORDERABLES Final Result documented in this encounter Visit Diagnoses Diagnosis Other malignant lymphomas of intra-abdominal lymph nodes documented in this encounter Care Teams Hospice Home Health Aide Relationship Specialty Start Date End Date Vikki Marshall NP [address] [place] [address] [place] [address] PCP - General 08/15/08 documented as of this encounter
--- OUTSIDE RECORDS SUMMARY | 2024-12-09 16:08 | XMS_ITS | Encounter Summary ---
Author Organization [facility] Address [address] [place] [address] Care Team Providers Care Drill Runner Name Role Phone Vikki Marshall NP Primary Care Provider [phone] Encounter Details Date Type Department Care Team (Late st Contact Info) Description 05/27/2007 Outpatient Historical [facility] Cancer and Hematology [address] [place] [address] [address] [place] [phone] Isac Locke MD NO ADDRESS ON FILE Social History Tobacco Use Types Packs/Day Years Used Date Smoking Tobacco: Never Assessed Sex and Gender Information Value Date Recorded Sex Assigned at Not on file 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
--- OUTSIDE RECORDS SUMMARY | 2024-12-09 16:08 | XMS_ITS | Encounter Summary ---
Author Organization [facility] Address [address] [place] [address] Care Team Providers Care Winder Contort Operator Name Role Phone Vikki Marshall NP Primary Care Provider [phone] Encounter Details Date Type Department Care Team (Latest Contact Info) Description 07/02/2008 Ancillary Orders [facility] Nuclear Medicine [facility] [place] [address] Isac Locke MD NO ADDRESS ON FILE Other Malignant Lymphomas of Intra-Abdominal Lymph Nodes (CMS/HCC) Social History Tobacco Use Types Packs/Day Years Used Date Smoking Tobacco: Never Assessed Sex and Gender Information Value Date Recorded Sex Assigned at Not on file 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 Recommend continued monitoring. Narrative 08/16/2008 4:31 PM CDT Radionuclide PET Metabolic Tumor Imaging with CT Attenuation Correction and Anatomic Localization from Skull Base to Mid Thigh: Radiopharmaceutical: U-95-Tpurfauhnfohpsjcar Dose: 13.6 mCi Reason for Consultation: Diffuse large B-cell lymphoma status post chemotherapy and radiation therapy for restaging FDG (D-58-Bukgcyzotlekpccfmc) PET imaging was performed at approximately one hour following intravenous infusion of the radiopharmaceutical agent using a dedicated PET / CT full ring detector with CT derived attenuation correction of PET data and anatomic localization. Imaging was performed from the skull base to mid thigh levels with subsequent reconstruction of full trunk, orthogonal view slices in transverse, sagittal, and coronal projections. Blood glucose level at the time of tracer injection was 92 which is satisfactory. Today's PET imaging examination is the fifth of a series reviewed wrgv-[id number] with the previous examination of 02/16/2008 which demonstrated stable findings in the mediastinum with no evidence of tumor activity. Today's PET imaging examination demonstrates a new focus of increased metabolic activity in a new small left superficial cervical lymph node with a maximum SUV value of 3.3 which measures 0.6 cm in short axis dimension and lies below the mandibular body. No other important findings or change. Procedure Note Leobardo Brink MD - 08/16/2008 Radionuclide PET Metabolic Tumor Imaging with CT Attenuation Correctionand Anatomic Localization from Skull Base to Mid Thigh: Radiopharmaceutical: Y-30-Yshwyojudxgcgyiivp Dose: 13.6 mCi Reason for Consultation: Diffuse large B-cell lymphoma status postchemotherapy and radiation therapy for restaging FDG (U-95-Acydzbksvbiqtzldmy) PET imaging was performed at approximatelyone hour following intravenous infusion of the radiopharmaceutical agent using a dedicated PET / CT fullring detector with CT derived attenuation correction of PET data and anatomic localization. Imaging wasperformed from the skull base to mid thigh levels with subsequent reconstruction of full trunk,orthogonal view slices in transverse, sagittal, and coronal projections. Blood glucose level at the time oftracer injection was 92 which is satisfactory. Today's PET imaging examination is the fifth of a series mpwiskgqgoft-io-dfbs with the previous examination of 02/16/2008 which demonstrated stable findings in themediastinum with no evidence of tumor activity. Today's PET imaging examination demonstrates a new focus of increasedmetabolic activity in a new small left superficial cervical lymph node with a maximum SUV value of 3.3 whichmeasures 0.6 cm in short axis dimension and lies below the mandibular body. No other important findingsor change. IMPRESSION Impression: A single new finding in a superficial left cervical lymph node may reflectnonspecific inflammatory changes or recurrent tumor. Recommend continued monitoring. us Isac Locke MD PE ORDERABLES Final Result documented in this encounter Visit Diagnoses Diagnosis Other malignant lymphomas of intra-abdominal lymph nodes Other malignant lymphomas of intra-abdominal lymph nodes documented in this encounter Care Teams Winder Contort Operator Relationship Specialty Start Date End Date Vikki Marshall NP [address] [place] [address] PCP - General 08/15/08 documented as of this encounter
--- OUTSIDE RECORDS SUMMARY | 2024-12-09 16:08 | XMS_ITS | Encounter Summary ---
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) Social History Tobacco Use Types Packs/Day Years Used Date Smoking Tobacco: Never Assessed Sex and Gender Information Value Date Recorded Sex Assigned at Not on file 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 Gender Identity Not on file Sexual Orientation Not on file documented as of this encounter Plan of Treatment Not on file documented as of this encounter Procedures Procedure Name Priority Date/Time Associated Diagnosis Comments CT ABDOMEN PELVIS W CONTRAST Routine 08/19/2007 9:52 AM CDT PET TUMOR OR INFECTION IMG W CT SKB MDTH Routine 08/19/2007 8:00 AM CDT POC GLUCOSE Routine 08/19/2007 7:52 AM CDT documented in this encounter Results * CT ABDOMEN PELVIS W CONTRAST (08/19/2007 9:52 AM CDT) Anatomical Region Laterality Modality Abdomen Other 08/19/2007 9:52 AM CDT Narrative 08/19/2007 9:52 AM CDT Exam: CT Abdomen, Pelvis, w/contrast Date/Time of Exam: Aug 19, 2007 9:52:43 AM History: lymphoma 202.83 v71.1. Technique: CT of the abdomen and pelvis was performed after the administration of intravenous contrast. Contrast administered was: 125 mL Optiray 240 and oral contrast. Findings: Comparison is made with the prior exam dated 06/24/2007. The liver, gallbladder, spleen, pancreas, adrenals and kidneys are within normal limits. An irregularly shaped mesenteric mass is again seen. This has slightly decreased compared to the prior exam measuring up to 7.3 x 4.2 cm compared with 7.6 x 4.5 cm previously. Left periaortic soft tissue mass consistent with adenopathy is stable measuring 3 x 2.5 cm. Bladder wall thickening is present. Bilateral fat containing inguinal hernia is noted. The prostate is within normal limits. Cardiomegaly with small pericardial effusion. The lung bases are clear except for evidence of old granulomatous disease. Degenerative change is noted in the spine. There are colonic diverticula present. Impression: Slight interval decrease in mesenteric mass. Unchanged left paraaortic lymphadenopathy. Other minor findings stable as above. - Dictated By: Michael Botello M.D. Electronically Signed By: Michael Botello M.D. Date Signed: 08/19/07 [facility] Procedure Note Michael Botello E - 08/19/2007 Exam: CT Abdomen, Pelvis, w/contrast Date/Time of Exam: Aug 19, 2007 9:52:43 AM History: lymphoma 202.83 v71.1. Technique: CT of the abdomen and pelvis was performed after theadministration of intravenous contrast. Contrast administered was: 125 mL Optiray 240 and oral contrast. Findings: Comparison is made with the prior exam dated 06/24/2007. Theliver, gallbladder, spleen, pancreas, adrenals and kidneys are within normal limits. An irregularlyshaped mesenteric mass is again seen. This has slightly decreased compared to the prior exam measuring upto 7.3 x 4.2 cm compared with 7.6 x 4.5 cm previously. Left periaortic soft tissue mass consistent withadenopathy is stable measuring 3 x 2.5 cm. Bladder wall thickening is present. Bilateral fat containinginguinal hernia is noted. The prostate is within normal limits. Cardiomegaly with small pericardialeffusion. The lung bases are clear except for evidence of old granulomatous disease. Degenerative change isnoted in the spine. There are colonic diverticula present. Impression: Slight interval decrease in mesenteric mass. Unchanged leftparaaortic lymphadenopathy. Other minor findings stable as above. - Dictated By: Michael Botello M.D. Electronically Signed By: Michael Botello M.D. 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 Imaging was performed from the skull base to mid thigh levels with subsequent reconstruction of full trunk, orthogonal view slices in transverse, sagittal, and coronal projections. Today's PET imaging examination is the third of the series and is reviewed hibx-ef-svji with the previous examination of 06/24/1999 and demonstrated resolution of abdominal mass metabolic activity with stable residual hilar increase consistent with nonspecific inflammatory change. Today's PET imaging examination is performed concurrently with diagnostic CT examinations of the abdomen and pelvis which will be subsequently correlated. Today's PET imaging examination demonstrates stable bilateral hilar increase of metabolic activity with the right hilum changing from an SUV maximum value of 2.5-3.0 and on the left side from 2.4-2.2. No abdominal abnormality is identified. No important change in comparison to the prior examination. Impression: Stable examination demonstrating no strong evidence for tumor activity. - Dictated By: Leobardo Brink M.D. Electronically Signed By: Leobardo Brink M.D. Date Signed: 08/19/[address] examinations of the abdomen and pelvis with contrast performed 08/18/[address] Botello to demonstrate slight interval decrease in mesenteric mass and unchanged paraaortic lymphadenopathy consistent with previously reported PET imaging examination findings of no evidence for tumor activity or progression. - Dictated By: Leobardo Brink M.D. Electronically Signed By: Leobardo Brink M.D. Date Signed: 08/19/07 Procedure Note Leobardo Brink - 08/19/2007 Radionuclide PET Metabolic Tumor Imaging with CT Attenuation Correctionand Anatomic Localization from Skull Base to Mid Thigh: Radiopharmaceutical: L-31-Uqfzowtetgsqidfedg Dose: 12 mCi Reason for Consultation: Large B-cell lymphoma status post chemotherapyfor restaging evaluation FDG (G-97-Tonowrloovtxlauoqg) PET imaging was performed at approximatelyone hour following intravenous infusion of the radiopharmaceutical agent using a dedicated PET / CT fullring detector with CT derived attenuation correction of PET data and anatomic localization. Imaging wasperformed from the skull base to mid thigh levels with subsequent reconstruction of full trunk,orthogonal view slices in transverse, sagittal, and coronal projections. Today's PET imaging examination is thethird of the series and is reviewed awzy-jr-ehrc with the previous examination of 06/24/1999 anddemonstrated resolution of abdominal mass metabolic activity with stable residual hilar increaseconsistent with nonspecific inflammatory change. Today's PET imaging examination is performedconcurrently with diagnostic CT examinations of the abdomen and pelvis which will be subsequentlycorrelated. Today's PET imaging examination demonstrates stable bilateral hilarincrease of metabolic activity with the right hilum changing from an SUV maximum value of 2.5-3.0 and on theleft side from 2.4-2.2. No abdominal abnormality is identified. No important change in comparison tothe prior examination. Impression: Stable examination demonstrating no strong evidence for tumor activity. - Dictated By: Leobardo Brink M.D. Electronically Signed By: Leobardo Brink M.D. Date Signed: 08/19/[address] examinations of the abdomen and pelvis with contrastperformed 08/18/[address] Botello to demonstrate slight interval decrease in mesentericmass and unchanged paraaortic lymphadenopathy consistent with previously reported PET imagingexamination findings of no evidence for tumor activity or progression. - Dictated By: Leobardo Brink M.D. Electronically Signed By: Leobardo Brink M.D. Date Signed: 08/19/07 us Isac Locke MD PE ORDERABLES Edited * (ABNORMAL) POC GLUCOSE (08/19/2007 7:52 AM CDT) GLUCOSE POC 114(H) 60 - 100 mg/dL [facility] Venous blood specimen (specimen) 08/19/2007 7:52 AM CDT 08/22/2007 6:30 AM CDT us Isac Locke MD POINT OF CARE TESTING Final Resu lt [facility] [address] [address] documented in this encounter Visit Diagnoses Diagnosis Other malignant lymphomas of intra-abdominal lymph nodes documented in this encounter Care Teams Wirer Relationship Specialty Start Date End Date Vikki Marshall NP [address] [place] [address] PCP - General 08/15/08 documented as of this encounter
--- OUTSIDE RECORDS SUMMARY | 2024-12-09 16:08 | XMS_ITS | Encounter Summary ---
Author Organization [facility] Address [address] [place] [address] Care Team Providers Care Health Information Technologist Name Role Phone Vikki Marshall NP Primary Care Provider [phone] Encounter Details Date Type Department Care Team (Latest Contact Info) Description 05/28/2003 Outpatient Historical [facility] Cardiology Ancillary Services-[place] [address] [place] [address] Conrad Oliver MD NO ADDRESS ON FILE PRECORDIAL PAIN (Primary Dx) Social History Tobacco Use Types Packs/Day Years Used Date Smoking Tobacco: Never Assessed Sex and Gender Information Value Date Recorded Sex Assigned at Not on file 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 [place] [address] PCP - General 08/15/08 documented as of this encounter
--- OUTSIDE RECORDS SUMMARY | 2024-12-09 16:08 | XMS_ITS | Encounter Summary ---
Author Organization [facility] Address [address] [place] [address] Care Team Providers Care Back Up Worker Name Role Phone Vikki Marshall NP Primary Care Provider [phone] Encounter Details Date Type Department Care Team (Latest Contact Info) Description 05/10/2003 Outpatient Historical [facility] Cardiology- [place] [address] [place] [address] Abimael Castellanos MD [address] [facility] [address] [place] [address] Pure hypercholesterolem (Primary Dx); PRECORDIAL PAIN; ABNORMAL CARDIOVASC STUDY NOS Social History Tobacco Use Types Packs/Day Years Used Date Smoking Tobacco: Never Assessed Sex and Gender Information Value Date Recorded Sex Assigned at Not on file 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
[2024-12-09 16:22] LABS: Hematocrit 33.3 % (37-53); Hemoglobin 11.30 g/dL (11.27-16.99); Mean Corpuscular HGB Conc 33.9 g/dL (30-55); Mean Corpuscular Hemoglobin 28.9 pg (27-33); Mean Corpuscular Volume 85.2 fl (82-101); Nucleated Red Blood Cells % 0 %; Platelet Count 254 10^3/cmm (157-399); Red Blood Count 3.91 10^6/uL (3.85-5.65); White Blood Count 7.01 10^3/uL (3.29-11.43)
[2024-12-09 16:39] LABS: Troponin(5th) Baseline 14 ng/L (0-15)
[2024-12-09 16:47] LABS: Alanine Aminotransferase 14 U/L (0-41); Albumin Level 4.0 g/dL (3.5-5.2); Alkaline Phosphatase 120 U/L (40-130); Anion Gap 19.0 (5-19); Aspartate Amino Transferase 15 U/L (0-40); Blood Urea Nitrogen 22 mg/dL (8-23); Calcium 9.2 mg/dL (8.5-10.5); Carbon Dioxide 24 mmol/L (22-29); Chloride 93 mmol/L (98-107); Globulin 2.9 g/dL (1.3-4.6); Glucose 107 mg/dL (65-115); Osmolality Calculated 278 mOsm/kg (285-295); Potassium 4.0 mmol/L (3.5-5.1); Sodium 132 mmol/L (136-145); Total Protein 6.9 g/dL (6.6-8.7)
[2024-12-09 16:49] LABS: Creatinine Clr Calc Pharmacy 65.7969
[2024-12-09 19:05] LABS: Troponin 5 2HR 14.49 ng/L (0-15); Troponin 5 2HR Delta 0.49 ABS# (0-10)
--- NOTE | 2024-12-09 20:39 | ECG_ITS ---
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 Measurements Intervals [place] Rate: 63 P: 106 NV: 184 QRS: 140 QRSD: 150 T: -7 QT: 451 QTc: 463 Interpretive Statements SINUS RHYTHM WITH SINUS ARRHYTHMIA RIGHT AXIS DEVIATION [QRS AXIS > 100] RIGHT BUNDLE BRANCH BLOCK [120+ ms QRS DURATION, UPRIGHT V1, 40+ ms S IN I/aVL/V4/V5/V6] MODERATE T-WAVE ABNORMALITY, CONSIDER LATERAL ISCHEMIA [-0.1+ mV T-WAVE IN I/aVL/V5/V6] Compared to ECG 12/09/2024 16:03:18 Right-axis deviation now present Right bundle-branch block now present T-wave abnormality now present Possible ischemia now present Intraventricular conduction delay no longer present Electronically Signed On 12-13-2024 00:33:39 CDT by Gerson Paul M.D. [email or web address]
--- NOTE | 2024-12-09 22:40 | ECG_ITS ---
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 Measurements Intervals [place] Rate: 71 P: 71 CA: 197 QRS: 42 QRSD: 152 T: 25 QT: 433 QTc: 473 Interpretive Statements SINUS RHYTHM RIGHT BUNDLE BRANCH BLOCK [120+ ms QRS DURATION, UPRIGHT V1, 40+ ms S IN I/aVL/V4/V5/V6] MODERATE T-WAVE ABNORMALITY, CONSIDER LATERAL ISCHEMIA [-0.1+ mV T-WAVE IN I/aVL/V5/V6] MODERATE T-WAVE ABNORMALITY, CONSIDER INFERIOR ISCHEMIA [-0.1+ mV T-WAVE IN II/aVF] Compared to ECG 12/09/2024 20:39:29 Sinus arrhythmia no longer present Right-axis deviation no longer present T-wave abnormality still present Possible ischemia still present Electronically Signed On 12-13-2024 00:32:57 CDT by Gerson Paul M.D. [email or web address] [id number]
[2024-12-09 22:52] LABS: Troponin 5 6HR 15.95 ng/L (0-15); Troponin 5 6HR Delta 1.95 ng/L (0-12)
== END 2024-12-09 23:13 | disposition short-term general hospital (02) ==
PROVIDERS: Family Medicine; Emergency Provider Emergency Medicine; PCP Nurse Practitioner
DX: R07.9 Chest pain, unspecified (principal); I25.110 Atherosclerotic heart disease of native coronary artery with unstable angina pectoris; E78.5 Hyperlipidemia, unspecified; I10 Essential (primary) hypertension; Z87.891 Personal history of nicotine dependence
CPT/HCPCS: 36415; 71045; 80053; 84484; 85025; 93005; 99285; J9999

== ENCOUNTER → 2024-12-27 16:37 | Outpatient (BNVA) | payer MEDICARE, OTHER, SELFPAY | PROVIDERS: PCP Family Medicine; Visit Provider Nurse Practitioner | DX: I10 Essential (primary) hypertension (principal); W57.XXXA Bitten or stung by nonvenomous insect and other nonvenomous arthropods, initial encounter | CPT/HCPCS: 80048; 86618; 86666; 86757 ==

== ENCOUNTER 2025-01-15 08:02 | Oncology outpatient (recurring) (ONCR) | payer MEDICARE, OTHER, SELFPAY ==
[2025-01-15] MEDS: cosyntropin 0.25 mg SDV IVP (09:14)
[2025-01-15] MEDS: alteplase 1 mg/mL SDV 2 mL 2 MG INTRACATH (09:21)
[2025-01-15 09:54] LABS: Cosyntropin Baseline 11.74 mcg/dL
[2025-01-15 10:19] LABS: Cosyntropin 30 Minute 21.50 mcg/dL
[2025-01-15 10:57] LABS: Cosyntropin 1 Hour 25.58 mcg/dL
== END 2025-01-28 23:59 | disposition home or self-care (01) ==
PROVIDERS: PCP Family Medicine; Visit Provider Internal Medicine Medical Oncology
DX: C83.38 Diffuse large B-cell lymphoma, lymph nodes of multiple sites (principal); Z95.828 Presence of other vascular implants and grafts
CPT/HCPCS: 36591; 36593; 82533; 84403; 96375; J0834; J2997

== ENCOUNTER 2025-03-12 10:50 | Oncology outpatient (recurring) (ONCR) | payer MEDICARE, OTHER, SELFPAY | END 2025-03-30 23:59 | disposition home or self-care (01) | PROVIDERS: PCP Nurse Practitioner; Visit Provider Internal Medicine Medical Oncology | DX: Z45.2 Encounter for adjustment and management of vascular access device (principal); Z95.828 Presence of other vascular implants and grafts | CPT/HCPCS: 96523 ==

== ENCOUNTER 2025-04-10 12:19 | Oncology outpatient (recurring) (ONCR) | payer MEDICARE, OTHER, SELFPAY | END 2025-04-29 23:59 | disposition home or self-care (01) | PROVIDERS: PCP Nurse Practitioner; Visit Provider Internal Medicine Medical Oncology | DX: Z45.2 Encounter for adjustment and management of vascular access device (principal); Z95.828 Presence of other vascular implants and grafts | CPT/HCPCS: 96523 ==